=== PATIENT | male | born 1945 | race Caucasian/White ===

== ENCOUNTER → 2016-11-03 | Outpatient (CLI) | payer MEDICARE ==
[~2016-11-03] VITALS: Ht 172.7 cm; Wt 75.7 kg
[~2016-11-03] MED LIST: ATOR40TA PO; LIDOCAINE 2% INJ 100 MG/5 ML SDV (FOR ANES.) As Ordered ONE; NEXI40CA PO; NS 1,000 ML IV SCH; PROPOFOL 200 MG/20 ML VIAL As Ordered ONE; ZYLO300T4 PO
--- NOTE | 2016-11-03 11:46 | ROOR ---
Patient Name: Micheal Morelos Procedure Date: 11/03/2016 11:29 AM Date of : 1945 Age: 71 Room: M OP Gender: Male Note Status: Finalized Procedure: Upper GI endoscopy Indications: Iron deficiency anemia Providers: Vinny Tilley MD Referring MD: Gena Ortiz MD Requesting Provider: Medicines: Monitored Anesthesia Care Complications: No immediate complications. Procedure: Pre-Anesthesia Assessment: - The heart rate, respiratory rate, oxygen saturations, blood pressure, adequacy of pulmonary ventilation, and response to care were monitored throughout the procedure. The Endoscope was introduced through the mouth, and advanced to the second part of duodenum. The upper GI endoscopy was accomplished without difficulty. The patient tolerated the procedure well. Findings: The Z-line was regular and was found 40 cm from the incisors. A small hiatus hernia was present. Diffuse minimal inflammation characterized by erosions and erythema was found in the gastric body. The exam of the duodenum was otherwise normal. Impression: - Z-line regular, 40 cm from the incisors. - Small hiatus hernia. - Acute gastritis. - No specimens collected. - The examination was otherwise normal. Recommendation: - Patient has a contact number available for emergencies. The signs and symptoms of potential delayed complications were discussed with the patient. Return to normal activities tomorrow. Written discharge instructions were provided to the patient. - Discharge patient to home. - High fiber diet. - Continue present medications. - Return to referring physician. - The findings and recommendations were discussed with the patient's family. Vinny Tilley MD Vinny Tilley MD 11/03/2016 11:46:10 AM This report has been signed electronically. Number of Addenda: 0 Note Initiated On: 11/03/2016 11:29 AM Estimated Blood Loss: Estimated blood loss: none.
--- NOTE | 2016-11-03 12:04 | ROOR ---
Patient Name: Micheal Morelos Procedure Date: 11/03/2016 11:30 AM Date of : 1945 Age: 71 Room: [facility] Gender: Male Note Status: Finalized Procedure: Colonoscopy to Cecum Indications: Iron deficiency anemia Providers: Vinny Tilley MD Referring MD: Gena Ortiz MD Requesting Provider: Medicines: Monitored Anesthesia Care Complications: No immediate complications. Procedure: Pre-Anesthesia Assessment: - The heart rate, respiratory rate, oxygen saturations, blood pressure, adequacy of pulmonary ventilation, and response to care were monitored throughout the procedure. The Colonoscope was introduced through the anus and advanced to the cecum, identified by appendiceal orifice and ileocecal valve. The colonoscopy was performed without difficulty. The patient tolerated the procedure well. The quality of the bowel preparation was excellent. Findings: The perianal and digital rectal examinations were normal. Non-bleeding internal hemorrhoids were found during retroflexion. The hemorrhoids were small and Grade I (internal hemorrhoids that do not prolapse). Multiple small and large-mouthed diverticula were found in the entire colon. The exam was otherwise without abnormality on direct and retroflexion views. Impression: - Non-bleeding internal hemorrhoids. - Diverticulosis in the entire examined colon. - The examination was otherwise normal on direct and retroflexion views. - No specimens collected. - The exam was otherwise normal to the cecum. Recommendation: - Patient has a contact number available for emergencies. The signs and symptoms of potential delayed complications were discussed with the patient. Return to normal activities tomorrow. Written discharge instructions were provided to the patient. - High fiber diet. - Discharge patient to home. - Continue present medications. - Repeat colonoscopy in 10 years for screening purposes. - Return to referring physician. - The findings and recommendations were discussed with the patient's family. Vinny Tilley MD Vinny Tilley MD 11/03/2016 12:03:34 PM This report has been signed electronically. Number of Addenda: 0 Note Initiated On: 11/03/2016 11:30 AM Estimated Blood Loss: Estimated blood loss: none.
[2016-11-03 12:25] VITALS: BP 126/85
== END ==
LOC: M OPP 10:15 → M SDC 10:39
PROVIDERS: ATTEND Internal Medicine Gastroenterology
DX: D50.9 Iron deficiency anemia, unspecified (principal); K57.30 Diverticulosis of large intestine without perforation or abscess without bleeding; K44.9 Diaphragmatic hernia without obstruction or gangrene; K64.0 First degree hemorrhoids; R13.10 Dysphagia, unspecified; K29.00 Acute gastritis without bleeding; E78.5 Hyperlipidemia, unspecified; F32.9 Major depressive disorder, single episode, unspecified; M10.9 Gout, unspecified; R12 Heartburn; Z86.010 Personal history of colon polyps; Z88.6 Allergy status to analgesic agent; Z80.52 Family history of malignant neoplasm of bladder; Z87.891 Personal history of nicotine dependence; Z79.899 Other long term (current) drug therapy

== ENCOUNTER → 2017-03-12 | Outpatient (CLI) | payer MEDICARE ==
[~2017-03-12] MED LIST changes: -LIDOCAINE 2% INJ 100 MG/5 ML SDV (FOR ANES.) As Ordered ONE; -NS 1,000 ML IV SCH; -PROPOFOL 200 MG/20 ML VIAL As Ordered ONE
--- NOTE | 2017-03-12 13:20 | REP ---
Clinical: Lung screening. History of smoking. Comparison: None Technique: Axial low-dose noncontrast images from the thoracic inlet to the upper abdomen using lung screening technique. Findings: The lung blackwell are well-aerated. Mild emphysematous changes are appreciated along with mild central bronchiectasis and minimal scattered basilar scarring. No consolidation, significant nodule or mass lesion is appreciated. No pleural effusion/reaction or pneumothorax. Mediastinum demonstrates mild atherosclerotic changes of the coronary arteries without cardiomegaly. Impression: Lung-RADS category I. No nodule or suspicious abnormality. Secondary findings include mild emphysematous changes. Management recommendations include annual low-dose CT screening. Signed by Ken Gallegos MD 03/12/2017 01:11 P
== END ==
LOC: M RAD 12:53
PROVIDERS: ATTEND Family Medicine
DX: Z87.891 Personal history of nicotine dependence (principal)

== ENCOUNTER → 2018-03-16 | Outpatient (CLI) | payer MEDICARE | LOC: M RAD 10:13 | DX: Z12.2 Encounter for screening for malignant neoplasm of respiratory organs (principal); Z87.891 Personal history of nicotine dependence | CPT/HCPCS: G0297 ==

== ENCOUNTER → 2019-02-15 | Outpatient (REF) | payer MEDICARE ==
[~2019-02-15] MED LIST changes: -ATOR40TA PO; +ATOR40TA75 PO; -ZYLO300T4 PO; +ZYLO300T6 PO
[2019-02-15 15:00] LABS: HEMATOCRIT 37.8 % (42.0-52.0); HEMOGLOBIN 12.9 g/dl (13.5-17.5); MEAN CORPUSCULAR HEMOGLOBIN 32.3 pg (27.0-33.0); MEAN CORPUSCULAR HGB CONC 34.1 g/dl (32.0-36.5); MEAN CORPUSCULAR VOLUME 94.5 fl (80.0-96.0); PLATELET COUNT, AUTOMATED 249 10^3/uL (150-450)
== END ==
LOC: M SFHCPLAZ 13:24
PROVIDERS: ATTEND Family Medicine
DX: D50.9 Iron deficiency anemia, unspecified (principal); M10.9 Gout, unspecified

== ENCOUNTER → 2019-02-16 | Outpatient (REF) | payer MEDICARE | LOC: M SFHCPLAZ 13:26 | PROVIDERS: ATTEND Family Medicine | DX: D50.9 Iron deficiency anemia, unspecified (principal) ==

== ENCOUNTER → 2019-02-17 | Outpatient (REF) | payer MEDICARE ==
[2019-02-17 18:29] LABS: HEMATOCRIT 39.4 % (42.0-52.0); HEMOGLOBIN 13.2 g/dl (13.5-17.5); MEAN CORPUSCULAR HEMOGLOBIN 32.2 pg (27.0-33.0); MEAN CORPUSCULAR HGB CONC 33.5 g/dl (32.0-36.5); MEAN CORPUSCULAR VOLUME 96.1 fl (80.0-96.0); PLATELET COUNT, AUTOMATED 243 10^3/uL (150-450); WHITE BLOOD COUNT 13.3 10^3/uL (4.0-10.0)
== END ==
LOC: M LABDRAWP 14:21
PROVIDERS: ATTEND Family Medicine
DX: D64.9 Anemia, unspecified (principal)

== ENCOUNTER → 2019-02-25 | Outpatient (CLI) | payer MEDICARE ==
--- NOTE | 2019-02-25 16:36 | REP ---
HISTORY: Tobacco abuse. COMPARISON: 03/16/2018 and 03/12/2017. As per the low dose screening CT protocol only lung window images were sent to the read station for interpretation. The lung blackwell are again seen to be hyperexpanded, status quo. Scattered asymmetric densities are again seen throughout the lung blackwell with basilar predominance, status quo. There is mild thickening of the periphery of the left major fissure which is stable. There is evidence of cylindrical traction bronchiectasis, status quo. No new abnormal nodules, masses or opacities have developed. IMPRESSION: Stable chronic lung field changes and emphysematous changes with fibrosis and bronchiectasis as described above. There is no new nodule. Lung-RADS category 2. Yearly followup is recommended. Electronically Signed by Nathaniel Delgado DO 02/25/2019 04:41 P
== END ==
LOC: M RAD 10:40
PROVIDERS: ATTEND Family Medicine
DX: F17.211 Nicotine dependence, cigarettes, in remission (principal); R91.8 Other nonspecific abnormal finding of lung field

== ENCOUNTER → 2019-06-09 | Outpatient (CLI) | payer MEDICARE ==
[~2019-06-09] MED LIST changes: +CART1TAB2 PO; +IBUP200C25 PO; +SAW1CAPS2 PO
--- NOTE | 2019-06-09 10:10 | REP ---
REASON FOR EXAM: Splenomegaly. Multiple ultrasonographic images of the spleen show the spleen to measure 9.4 x 3.7 x 8.6 cm rendering a splenic volumetric index of 299 mL which is within normal limits. When evaluating the left upper quadrant images of the left kidney were obtained showing both kidneys to measure 11.9 x 4.9 x 5.4 cm. There are two anechoic structures seen in the left kidney 1 measuring a centimeter and the other measuring 1.5 cm, both consistent with renal cysts. The larger of the two cyst has potential mural nodule and the smaller of the two cysts is thinly singularly septated. Also seen in the left kidney a tiny echogenic focus was seen in the cortex of the upper pole not casting an acoustic shadow. IMPRESSION:1. No ultrasonographic evidence of splenomegaly. Volumetric index is within normal limits with measurements as described above. 2. Findings involving the left kidney as described above. Pre and post contrast enhanced renal CT is recommended due to the complexity or potential complexity of the aforementioned cysts. The echogenic focus seen in the left kidney potentially represents a non-shadowing calculus or vascular structure. Electronically Signed by Nathaniel Delgado DO 06/09/2019 03:28 P
== END ==
LOC: M RAD 07:26
PROVIDERS: ATTEND Internal Medicine
DX: R16.1 Splenomegaly, not elsewhere classified (principal)

== ENCOUNTER → 2019-10-12 | Outpatient (CLI) | payer MEDICARE ==
--- NOTE | 2019-10-12 11:21 | REP ---
Abdominal aortic sonography: History: Abdominal aortic aneurysm without rupture. Comparison sonography October 02, 2016 showed a 3.1 cm distal abdominal aortic aneurysm. Sonographic findings: The abdominal aorta measures 2.5 x 2.0 cm in AP by transverse dimension respectively at the diaphragmatic hiatus. At the level of the main renal arteries, these dimensions are 2.1 x 1.6 cm. At mid aortic level there is a infrarenal aneurysm measuring 3.1 x 2.4 cm. 7 cm of aortic length is dilated. The distal aorta tapers to a normal caliber, 2.0 x 1.5 cm. The right and left common iliac arteries are normal in caliber measuring 1.1 and 0.9 cm in AP dimension respectively. Impression: Stable 3.1 x 2.4 cm infrarenal abdominal aortic aneurysm. Electronically Signed by Johnie Holloway MD 10/12/2019 05:50 P
== END ==
LOC: M RAD 09:28
PROVIDERS: ATTEND Family Medicine
DX: I71.4 Abdominal aortic aneurysm, without rupture (principal)

== ENCOUNTER → 2020-02-23 | Outpatient (REF) | payer MEDICARE ==
[2020-02-23 12:27] LABS: ALBUMIN 3.7 GM/DL (3.2-5.2); ALT/SGPT 26 U/L (12-78); BILIRUBIN,TOTAL 0.5 MG/DL (0.2-1.0); BLOOD UREA NITROGEN 9 MG/DL (7-18); CALCIUM LEVEL 9.1 MG/DL (8.8-10.2); CARBON DIOXIDE LEVEL 28 MEQ/L (21-32); CHLORIDE LEVEL 106 MEQ/L (98-107); CHOLESTEROL LEVEL 183 MG/DL (<200); CHOLESTEROL RISK RATIO 1.605 (<5); CREATININE FOR GFR 0.86 MG/DL (0.70-1.30); GLOMERULAR FILTRATION RATE > 60.0 (>42); GLUCOSE, FASTING 81 MG/DL (70-100); HDL CHOLESTEROL 114 MG/DL (>40); LDL CHOLESTEROL 15 MG/DL (<100); NON-HDL-C 69 MG/DL; POTASSIUM SERUM 4.4 MEQ/L (3.5-5.1); SODIUM LEVEL 141 MEQ/L (136-145); TOTAL PROTEIN 7.1 GM/DL (6.4-8.2); TRIGLYCERIDES LEVEL 268 MG/DL (<150); URIC ACID 3.5 MG/DL (3.5-7.2)
== END ==
LOC: M PLALAB 10:25
PROVIDERS: ATTEND Family Medicine
DX: E78.1 Pure hyperglyceridemia (principal); M10.9 Gout, unspecified

== ENCOUNTER → 2020-03-30 | Outpatient (CLI) | payer MEDICARE | LOC: M LABSMTC 09:36 | PROVIDERS: ATTEND Anesthesiology | DX: Z01.818 Encounter for other preprocedural examination (principal); Z11.59 Encounter for screening for other viral diseases | CPT/HCPCS: C9803; U0003 ==

== ENCOUNTER 2020-04-02 06:39 | Day surgery (SDC) | payer MEDICARE ==
[~2020-04-02] VITALS: Ht 172.7 cm; Wt 66.7 kg
[~2020-04-02 06:39] MED LIST changes: +NS 1,000 ML IV ONE
[2020-04-02] MEDS ORDERED: LIDOCAINE 2% 100MG/5ML SDV (FOR ANES.) As Ordered ONE (07:08)
[2020-04-02] MEDS ORDERED: propofoL 200 MG/20 ML VIAL As Ordered ONE ×2 (07:08→08:04)
[2020-04-02] MEDS ORDERED: fentaNYL 100 MCG/2 ML INJECTION (J3010) As Ordered ONE (07:47)
--- NOTE | 2020-04-02 07:56 | ROOR ---
Patient Name: Micheal Morelos Procedure Date: 04/02/2020 7:39 AM Date of : 1945 Age: 74 Room: [facility] Gender: Male Note Status: Finalized Procedure: Upper Endoscopy + Biopsies + Dilatation Indications: Heartburn, Exclusion of Patrick's esophagus Providers: Vinny Tilley MD Referring MD: Gena Ortiz MD Requesting Provider: Medicines: Monitored Anesthesia Care Complications: No immediate complications. Procedure: Pre-Anesthesia Assessment: - The heart rate, respiratory rate, oxygen saturations, blood pressure, adequacy of pulmonary ventilation, and response to care were monitored throughout the procedure. The Colonoscope was introduced through the anus and advanced to the second part of duodenum. The upper GI endoscopy was accomplished without difficulty. The patient tolerated the procedure well. Findings: The Z-line was regular and was found 35 cm from the incisors. Multiple biopsies were obtained with cold forceps for evaluation to rule out Patrick's Esophagus randomly at the gastroesophageal junction. A moderate Schatzki ring was found at the gastroesophageal junction. A TTS dilator was passed through the scope. Dilation with an 18-19-20 mm balloon dilator was performed to 20 mm. The dilation site was examined and showed moderate mucosal disruption. No other significant abnormalities were identified in a careful examination of the stomach. The exam of the duodenum was otherwise normal. Impression: - Z-line regular, 35 cm from the incisors. - Moderate Schatzki ring. Dilated. - Multiple biopsies were obtained at the gastroesophageal junction. - The examination was otherwise normal. Recommendation: - Patient has a contact number available for emergencies. The signs and symptoms of potential delayed complications were discussed with the patient. Return to normal activities tomorrow. Written discharge instructions were provided to the patient. - High fiber diet. - Discharge patient to home. - Follow an antireflux regimen. - Continue present medications. - Await pathology results. - Telephone GI clinic for pathology results in 1 week. - Return to referring physician. - The findings and recommendations were discussed with the patient's family. Vinny Tilley MD Vinny Tilley MD 04/02/2020 7:55:40 AM Electronically signed by Vinny Tilley MD Number of Addenda: 0 Note Initiated On: 04/02/2020 7:39 AM Estimated Blood Loss: Estimated blood loss: none.
[2020-04-02] MEDS ORDERED: PHENYLephrine HCL 500 MCG/5 ML (100MCG/ML) SYRINGE (J2370) As Ordered ONE (08:06)
--- NOTE | 2020-04-02 08:19 | ROOR ---
Patient Name: Micheal Morelos Procedure Date: 04/02/2020 7:36 AM Date of : 1945 Age: 74 Room: [facility] Gender: Male Note Status: Finalized Procedure: Total Colonoscopy to Cecum + Biopsy Polypectomy Indications: High risk colon cancer surveillance: Personal history of colonic polyps, Last colonoscopy: 2016 Providers: Vinny Tilley MD Referring MD: Gena Ortiz MD Requesting Provider: Medicines: Monitored Anesthesia Care Complications: No immediate complications. Procedure: Pre-Anesthesia Assessment: - The heart rate, respiratory rate, oxygen saturations, blood pressure, adequacy of pulmonary ventilation, and response to care were monitored throughout the procedure. The Endoscope was introduced through the mouth, and advanced to the cecum, identified by appendiceal orifice and ileocecal valve. The colonoscopy was performed without difficulty. The patient tolerated the procedure well. The quality of the bowel preparation was excellent. Findings: The perianal and digital rectal examinations were normal. Non-bleeding internal hemorrhoids were found during retroflexion. The hemorrhoids were small and Grade I (internal hemorrhoids that do not prolapse). Multiple small and large-mouthed diverticula were found in the recto-sigmoid colon, sigmoid colon and descending colon. A small polyp was found in the splenic flexure. The polyp was sessile. The polyp was removed with a cold biopsy forceps. Resection and retrieval were complete. The exam was otherwise without abnormality on direct and retroflexion views. Impression: - Non-bleeding internal hemorrhoids. - Diverticulosis in the recto-sigmoid colon, in the sigmoid colon and in the descending colon. - One small polyp at the splenic flexure, removed with a cold biopsy forceps. Resected and retrieved. - The examination was otherwise normal on direct and retroflexion views. - The exam was otherwise normal to the cecum. Recommendation: - Patient has a contact number available for emergencies. The signs and symptoms of potential delayed complications were discussed with the patient. Return to normal activities tomorrow. Written discharge instructions were provided to the patient. - High fiber diet. - Discharge patient to home. - Continue present medications. - Await pathology results. - Telephone GI clinic for pathology results in 1 week. - Repeat colonoscopy for symptoms only. - Return to referring physician. - The findings and recommendations were discussed with the patient's family. Vinny Tilley MD Vinny Tilley MD 04/02/2020 8:18:29 AM Electronically signed by Vinny Tilley MD Number of Addenda: 0 Note Initiated On: 04/02/2020 7:36 AM Estimated Blood Loss: Estimated blood loss: none.
[2020-04-02 08:40] VITALS: BP 128/68
== END 2020-04-02 08:54 | disposition home or self-care (01) ==
LOC: M OPP 06:39
PROVIDERS: ATTEND Internal Medicine Gastroenterology
DX: Z12.11 Encounter for screening for malignant neoplasm of colon (principal); Z86.010 Personal history of colon polyps; D12.3 Benign neoplasm of transverse colon; K64.0 First degree hemorrhoids; K57.30 Diverticulosis of large intestine without perforation or abscess without bleeding; K22.2 Esophageal obstruction; R12 Heartburn; Z79.899 Other long term (current) drug therapy; Z88.6 Allergy status to analgesic agent; Z87.891 Personal history of nicotine dependence
CPT/HCPCS: 43239; 43249; 45380; 88305; J2370; J3010

== ENCOUNTER 2020-04-30 13:42 | Inpatient (IN) | payer MEDICARE ==
[~2020-04-30] VITALS: Ht 175.3 cm; Wt 66.8 kg
[~2020-04-30 13:42] MED LIST changes: -PERC5TAB12 PO; -XARE10TA PO
[2020-04-30] MEDS ORDERED: NS 500 ML IV ONE (14:00)
[2020-04-30 14:12] LABS: BASO # 0.1 10^3/uL (0.0-0.2); BASO % 0.5 % (0.0-1.0); EOS % 0.1 % (0.0-3.0); HEMATOCRIT 36.8 % (42.0-52.0); HEMOGLOBIN 12.6 g/dl (13.5-17.5); LYMPH # 1.1 10^3/uL (1.5-5.0); LYMPH % 9.7 % (24.0-44.0); MEAN CORPUSCULAR HEMOGLOBIN 32.1 pg (27.0-33.0); MEAN CORPUSCULAR HGB CONC 34.2 g/dl (32.0-36.5); MEAN CORPUSCULAR VOLUME 93.6 fl (80.0-96.0); MONO # 0.7 10^3/uL (0.0-0.8); MONO % 6.2 % (0.0-5.0); NEUTROPHILS # 9.1 10^3/uL (1.5-8.5); NEUTROPHILS % 83.1 % (36.0-66.0); PLATELET COUNT, AUTOMATED 254 10^3/uL (150-450); RED BLOOD COUNT 3.93 10^6/uL (4.30-6.10)
[2020-04-30 15:26] LABS: INR 1.05; PROTHROMBIN TIME 13.4 SECONDS (11.8-14.0)
[2020-04-30 15:57] LABS: ALBUMIN 3.5 GM/DL (3.2-5.2); BILIRUBIN,DIRECT 0.2 MG/DL (0.0-0.2); BILIRUBIN,TOTAL 0.6 MG/DL (0.2-1.0); THYROID STIMULATING HORMONE 1.1 uIU/ML (0.358-3.740); TOTAL PROTEIN 6.9 GM/DL (6.4-8.2)
[2020-04-30] MEDS ORDERED: NS 1,000 ML IV SCH (16:02)
--- NOTE | 2020-04-30 16:05 | HPEPDOC ---
[facility] Medical History & Physical Date of Admission Apr 30, 2020 Date of Service: Apr 30, 2020 Primary Care Physician: A Attending Physician: Kendra Galvez MD History and Physical CHIEF COMPLAINT: left hip pain HISTORY OF PRESENT ILLNESS: Patient is a 75 y/o M with PMH of GERD, gout, HLD, tobacco use who presented to [facility] ER after falling on his left hip earlier today. Patient states he was walking his dog early this AM, when his dog stopped abruptly during a run. He continued to propel forward and his left hip hit the concrete. The rest of his body landed on the lawn. The patient felt immediate severe pain, 10/10 pain, sharp in character, constant. His helped him get to his feet. He was helped to his entryway to his house, his gave him crutches to use. He then had some light breakfast but the pain persisted. He then went to the Urgent Care to get XR. There was a suspicion for femur fracture and he was then sent to the ER for further evaluation. In ER, left hip fracture was confirmed. Orthopedic surgery was consulted and confirmed nondisplaced left intertrochanteric fracture. VS showed some hypertension, tachycardia 2/2 to pain. He was admitted under medicine service with orthopedic consult for left hip fracture requiring further surgical intervention. PAST MEDICAL HISTORY: 1. Gout 2. Hiatal hernia 3. GERD 4. HLD 5. hx of tobacco use PAST SURGICAL HISTORY: 1. Achilles tendon repair on right 1978 2. Colonoscopy 03/2020 SOCIAL HISTORY: Smoker for 35 years, 1 PPD. Quit 12 years ago. Alcohol use daily, 5-6 beers . Denies illicit drug use. PCP- Dr. Ortiz. Lives with his in the local community. HCP- his . Full Code. FAMILY HISTORY: Father: Colon cancer. at 73 y/o Mother: Cancer- type unknown. at 73 y/o ALLERGIES: Please see below. HOME MEDICATIONS: Please see below. PHYSICAL EXAMINATION: CONSTITUTIONAL: No acute distress, resting comfortably, AAO x 3 EYES: PERRLA, EOM intact HENT, MOUTH: Normocephalic, atraumatic, moist mucous membranes, NECK: SUPPLE, no JVD, no lymphadenopathy, no carotid bruit CV: Regular rate and rhythm, S1S2 normal, no murmurs/rubs/gallops RESPIRATORY: Clear to auscultation bilaterally, no rales/rhonchi/wheezes GI: BS positive in 4 quadrants, soft, nontender, nondistended, no rebound or guarding, no organomegaly : Deferred MUSCULOSKELETAL: ROM not tested left hip, pain with palpation of left hip. No cyanosis, clubbing, swelling, joint deformity, extremity edema INTEGUMENTARY: Mild bruising, superficial abrasions of left hip. Intact, no rashes, no lesions, no erythema NEUROLOGIC: Cranial Nerves II-XII are intact, no focal deficits PSYCHIATRIC: Mood and affect are normal LABORATORY DATA: Please see below IMAGING: Left hip XR: nondisplaced left intertrochanteric fracture . ASSESSMENT: 75 y/o M with PMH of gout, GERD, hiatal hernia, HLD admitted for left nondisplaced intertrochanteric fracture requiring surgery. PLAN: 1. Nondisplaced left intertrochanteric fracture, acute . -Patient is low risk for intermediate risk surgery -RCRI risk: Class I Risk -NPO -Pain control with morphine based on regimen scale. -Resume anticoagulation MIKE per surgery's recommendation -PT/OT when ok by surgery -Orthopedic surgery consulted, case discussed with Dr. Bañuelos 2. Tachycardia likely 2/2 to uncontrolled pain -Morphine PRN -Monitor on tele 3. HTN likely 2/2 to uncontrolled pain. No hx -Morphine PRN -Monitor on tele. 4. Gout -C/w medications when taking PO 5. HLD. -C/w statin when taking PO 6. GERD -Hx of hiatal hernia -Holding PO PPI -PPI IV 7. DVT Px. -TEDs, SCDs -Resume anticoagulation when ok with surgery post-op DISPOSITION: Admitted under medicine service with orthopedic surgery consulted. Vital Signs Vital Signs Date Time Temp Pulse Resp B/P (MAP) Pulse Ox O2 Delivery O2 Flow Rate FiO2 04/30/20 15:50 91 18 98 Room Air 04/30/20 15:48 128/79 (95) 04/30/20 13:53 98.8 Laboratory Data Labs 24H Laboratory Tests 2 04/30/20 14:00: Immature Granulocyte % (Auto) 0.4, Neutrophils (%) (Auto) 83.1H, Lymphocytes (%) (Auto) 9.7L, Monocytes (%) (Auto) 6.2H, Eosinophils (%) (Auto) 0.1, Basophils (%) (Auto) 0.5, Neutrophils # (Auto) 9.1H, Lymphocytes # (Auto) 1.1L, Monocytes # (Auto) 0.7, Eosinophils # (Auto) 0.0, Basophils # (Auto) 0.1, Nucleated Red Blood Cells % (auto) 0.0 04/30/20 14:03: POC Glucose (Misc Panel) 92, POC Sodium (Misc Panel) 136, POC Potassium (Misc Panel) 4.8, POC Chloride (Misc Panel) 102, POC Total CO2 (Misc Panel) 24.0, POC Blood Urea Nitrogen (Misc Panel 9, POC Ionized Calcium (Misc Panel) 4.5, POC Creatinine (Misc Panel) 0.9, POC Hematocrit (Misc Panel) 38.0 04/30/20 14:06: POC Troponin I (Misc) 0.00 04/30/20 14:53: Prothrombin Time 13.4, Prothromb Time International Ratio 1.05, Activated Partia l Thromboplast Time 22.0L, Total Bilirubin 0.6, Direct Bilirubin 0.2, Aspartate Amino Transf (AST/SGOT) 41H, Alanine Aminotransferase (ALT/SGPT) 23, Alkaline Phosphatase 110, KJ-Ogt-V-Type Natriuretic Peptide 148H, Total Protein 6.9, Albumin 3.5, Albumin/Globulin Ratio 1.0, Lipase 141, Thyroid Stimulating Hormone (TSH) 1.100 CBC/BMP Laboratory Tests 04/30/20 14:00 Microbiology Microbiology 04/30/20 Respiratory Virus Panel (PCR) ([facility]), Received Pending Home Medications Scheduled Allopurinol (Zyloprim) 300 Mg Tab, 300 MG PO DAILY Atorvastatin Calcium (Atorvastatin Calcium) 40 Mg Tablet, 40 MG PO DAILY Cartilage/Collagen/Bor/Hyalur (Move Free Ultra Tablet) 1 Each Tablet, 2 EACH PO DAILY Esomeprazole Magnesium (Nexium) 40 Mg Cap, 40 MG PO DAILY Ibuprofen (Ibuprofen) 200 Mg Capsule, 800 MG PO DAILY Saw [place] Fruit/Zinc Picoli (Saw [place] 450 mg Capsule) 1 Each Capsule, 1 EACH PO DAILY Allergies Coded Allergies: aspirin (Verified Allergy, Intermediate, swelling and hives, 03/26/20) A-FIB/CHADSVASC A-FIB History Current/History of A-Fib/PAF?: No Current PO Anticoag Therapy: No Age/Risk Factor Scoring CHADSVASC: CHADSVASC Response (Comments) Value Age Risk Factor Age 65-74 years old 1 Gender Risk Factor Male 0 Hx of CHF No 0 Hx of HTN No 0 Hx of Stroke/TIA/or VTE No 0 Hx of Diabetes No 0 Hx of Vascular Disease No 0 Total 1 Treatment Treatment ordered: NONE Other anticoagulant ordered: no due to having surgery Kendra Galvez MD Apr 30, 2020 16:05
[2020-04-30] MEDS ORDERED: MORPHINE 2 MG/ML 1ML VIAL (J2270) IV PRN ×3 (16:15→21:00)
[2020-04-30] MEDS ORDERED: ONDANSETRON 4MG/2ML VIAL IV PRN ×3 (16:15→21:00)
--- NOTE | 2020-04-30 16:47 | REP ---
CHEST: REASON: Chest pain. COMPARISON: 11/01/2002 The technique utilized in obtaining the radiograph has magnified the cardiac silhouette and accentuated the interstitial markings. FINDINGS: The superior mediastinal structures are midline. The cardiac silhouette is unremarkable in size, shape, and position. The diaphragmatic surfaces of the lungs are regular, and the costophrenic angles are clear. The pulmonary blackwell are clear. The imaged osseous structures are intact. IMPRESSION: There is no acute cardiopulmonary disease. Electronically Signed by Nathaniel Delgado DO 04/30/2020 04:51 P
[2020-04-30] MEDS ORDERED: ceFAZolin 1GM VIAL (J0690 PER 500MG) As Ordered ONE (17:55)
[2020-04-30] MEDS ORDERED: KETAMINE HCL 200 MG/20 ML VIAL As Ordered ONE (18:20)
[2020-04-30] MEDS ORDERED: MIDAZOLAM INJ 2MG/2ML VIAL (J2250 PER 1MG) As Ordered ONE ×2 (18:20→19:22)
[2020-04-30] MEDS ORDERED: ceFAZolin 2 GM/D5W 50 ML IV BAG (J0690 PER 500MG) As Ordered ONE (19:15)
[2020-04-30] MEDS ORDERED: ONDANSETRON 4MG/2ML VIAL As Ordered ONE (19:59)
[2020-04-30] MEDS ORDERED: KETOROLAC 60MG 2ML VIAL As Ordered ONE (19:59)
[2020-04-30] MEDS ORDERED: PHENYLephrine HCL 500 MCG/5 ML (100MCG/ML) SYRINGE (J2370) As Ordered ONE (19:59)
[2020-04-30] MEDS ORDERED: KETOROLAC 30 MG/ML 1ML VIAL IV PRN (20:01)
[2020-04-30] MEDS ORDERED: ACETAMINOPHEN TAB 650MG DOSE (2X325MG) PO PRN (21:00)
[2020-04-30] MEDS ORDERED: LR 1,000 ML IV SCH ×2 (21:00)
[2020-04-30] MEDS ORDERED: METOCLOPRAMIDE INJ 10MG/2ML VIAL (J2765 PER 1) IV PRN (21:00)
[2020-04-30] MEDS ORDERED: fentaNYL 100 MCG/2 ML INJECTION (J3010) IV PRN (21:00)
[2020-04-30] MEDS ORDERED: PERCOCET 5MG/325MG TAB PO PRN (21:00)
[2020-04-30 21:15] VITALS: BP 139/77
[2020-04-30 21:45] VITALS: BP 115/72
--- NOTE | 2020-04-30 22:06 | CR ---
DATE OF CONSULTATION: 04/30/2020 INDICATION: Left hip fracture. HISTORY OF PRESENT ILLNESS: Micheal is a 75-year-old gentleman, community ambulator, who tripped walking his dog earlier today. He had pain in the left hip, went to Urgent Care where x-rays revealed a nondisplaced greater trochanter fracture. He was transferred over to the emergency room (ER) at [facility] and admitted to the hospitalist service. He was medically optimized by the hospitalists. The patient was reporting moderate pain at the greater trochanter with no numbness or tingling. Pain improved with rest and morphine, worse with any movement or transfers. For the patient's full past medical history, past surgical history, medications, allergies and social history, please see the admitting history and physical, which I reviewed. REVIEW OF SYSTEMS: The patient denied neurologic, cardiac, pulmonary or abdominal symptoms. Musculoskeletal: Positive for pain and swelling. The patient does not smoke. 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 He lives in town with his . He is fairly active for his age. On exam, well-appearing gentleman, no distress. Alert and oriented times three. Neurologic: Appropriate mood and affect. Cardiovascular: 2+ posterior tibial (PT) pulse. Pulmonary: Nonlabored breathing. Abdomen: Nonobese. Skin is intact without open lesions. Musculoskeletal: The patient's leg was externally rotated, but not shortened. He had tenderness at the greater trochanter. Pain with any attempt a log roll. He could wiggle his toes. Sensation intact. X-rays of the left hip and left femur reveal a nondisplaced fracture at the greater trochanter, essentially a basicervical fracture. ASSESSMENT/PLAN: Micheal is a 75-year-old gentleman with a nondisplaced left intertrochanteric proximal femur fracture after mechanical fall. He was admitted to the hospitalist service and medically optimized. Plan to proceed with surgery later in the evening.
[2020-04-30 22:15] VITALS: BP 115/70
[2020-04-30 23:00] VITALS: BP 121/74
[2020-05-01] VITALS (8 sets, daily range): BP systolic 107–123; BP diastolic 61–77
[2020-05-01] MEDS: PERCOCET 5MG/325MG TAB PO PRN ×4 (01:16→23:33)
[2020-05-01] MEDS: ceFAZolin SOD 2 GM in IV 1 EA IV SCH ×2 (01:17→10:25)
[2020-05-01 06:32] LABS: HEMATOCRIT 30.8 % (42.0-52.0); MEAN CORPUSCULAR HEMOGLOBIN 32.3 pg (27.0-33.0); MEAN CORPUSCULAR HGB CONC 33.8 g/dl (32.0-36.5); MEAN CORPUSCULAR VOLUME 95.7 fl (80.0-96.0); PLATELET COUNT, AUTOMATED 201 10^3/uL (150-450); RED BLOOD COUNT 3.22 10^6/uL (4.30-6.10); WHITE BLOOD COUNT 7.7 10^3/uL (4.0-10.0)
[2020-05-01 06:36] LABS: HEMOGLOBIN 10.4 g/dl (13.5-17.5)
[2020-05-01 07:00] LABS: ALBUMIN 2.8 GM/DL (3.2-5.2); ALT/SGPT 17 U/L (12-78); BILIRUBIN,TOTAL 0.9 MG/DL (0.2-1.0); BLOOD UREA NITROGEN 8 MG/DL (7-18); CALCIUM LEVEL 8.3 MG/DL (8.8-10.2); CARBON DIOXIDE LEVEL 26 MEQ/L (21-32); CHLORIDE LEVEL 107 MEQ/L (98-107); CREATININE FOR GFR 0.99 MG/DL (0.70-1.30); GLOMERULAR FILTRATION RATE > 60.0 (>42); GLUCOSE, FASTING 96 MG/DL (70-100); POTASSIUM SERUM 3.4 MEQ/L (3.5-5.1); SODIUM LEVEL 140 MEQ/L (136-145); TOTAL PROTEIN 6.1 GM/DL (6.4-8.2)
[2020-05-01] MEDS ORDERED: PERCOCET 5MG/325MG TAB PO PRN (08:00)
--- NOTE | 2020-05-01 08:02 | ECGEPIP ---
[facility] - ED Test Date: 2020-04-30 Pat Name: ASIF PINTO Department: Room: - Gender: Male Surgical Clinical Reviewer: SUYAPA : 1945 Requested By: SUSU Bruno Order Number: [id number] Reading MD: Richard Ibrahim Measurements Intervals Clint Rate: 85 P: 25 ID: [id number] QRS: 46 QRSD: 144 T: 224 QT: 416 QTc: 496 Interpretive Statements SINUS RHYTHM LEFT BUNDLE BRANCH BLOCK NO PRIORS FOR COMPARISON Electronically Signed on 05-01-2020 8:02:48 EDT by Richard Ibrahim
[2020-05-01] MEDS: MOM 30ML SUSPENSION UDC PO SCH (08:30)
[2020-05-01] MEDS: MIRALAX *UNIT DOSE* 17GM PACKET PO SCH (08:30)
[2020-05-01] MEDS: PANTOPRAZOLE 40MG VIAL (C9113 PER 1) IV SCH (08:30)
--- NOTE | 2020-05-01 08:46 | REP ---
REASON: Known hip fracture. AP and cross-table lateral views of the left femur show a previously described proximal femoral fracture. There are no additional fractures. There is no hip joint dislocation. Electronically Signed by Nathaniel Delgado DO 05/01/2020 05:18 P
--- NOTE | 2020-05-01 11:04 | REP ---
REASON: Status post ORIF. Previously described femoral fracture has been internally fixed with intramedullary windy placement. The alignment is near anatomical. There are no additional fractures. Electronically Signed by Nathaniel Delgado DO 05/01/2020 05:22 P
--- NOTE | 2020-05-01 12:27 | REP ---
C-ARM VIEWS LEFT HIP: Multiple C-arm views of the left hip performed during placement of metallic internal fixation in the left femur. Osseous structures are well aligned. 1 minute 12 seconds of fluoroscopy time is utilized. Electronically Signed by Mark Espinoza MD 05/01/2020 07:38 P
[2020-05-01] MEDS: TAMSULOSIN 0.4 MG CAP PO SCH (15:14)
--- NOTE | 2020-05-01 17:28 | IPNPDOC ---
Text Note Date of Service The patient was seen on 05/01/20. NOTE SUBJECTIVE: -No complaints today. Pain well controlled. Ambulated with PT. -Is having some urinary retention requiring straight cath, is asking for flomax PHYSICAL EXAMINATION: CONSTITUTIONAL: No acute distress, resting comfortably, AAO x 3 EYES: PERRLA, EOM intact HENT, MOUTH: Normocephalic, atraumatic, moist mucous membranes, NECK: SUPPLE, no JVD, no lymphadenopathy, no carotid bruit CV: Regular rate and rhythm, S1S2 normal, no murmurs/rubs/gallops RESPIRATORY: Clear to auscultation bilaterally, no rales/rhonchi/wheezes GI: normoactive sounds, soft, nontender, nondistended, no rebound or guarding, no organomegaly MUSCULOSKELETAL: ROM not tested left hip, mild pain with palpation of left hip. No extremity edema NEUROLOGIC: Cranial Nerves II-XII are intact, no focal deficits PSYCHIATRIC: Mood and affect are normal LABORATORY DATA: WBC 7.7 hgb 10.4 K 3.4 Cr 0.99 ASSESSMENT: 75 y/o M with PMH of gout, GERD, hiatal hernia, HLD admitted for left nondisplaced intertrochanteric fracture s/p surgery, doing well. PLAN: Acute nondisplaced left intertrochanteric fracture s/p surgery. -Pain management per surgery team -PT/OT -Orthopedic surgery onboard, appreciate recs -On xarelto Gout -C/w home meds HLD. -C/w statin GERD -Hx of hiatal hernia -continue home PPI 7. DVT Px. -TEDs, SCDs -on xarelto DISPOSITION: Admitted under medicine service with orthopedic surgery consulted. VS,Fishbone, I+O VS, Fishbone, I+O Laboratory Tests 05/01/20 05:59 Vital Signs Date Time Temp Pulse Resp B/P (MAP) Pulse Ox O2 Delivery O2 Flow Rate FiO2 05/01/20 16:53 17 05/01/20 14:00 98.2 82 120/61 (80) 98 Room Air I&O- Last 24 Hours up to 6 AM 05/01/20 05:59 Intake Total 1800 ml Output Total 75 ml Balance 1725 ml FRANKY WOODRUFF MD May 01, 2020 17:28
[2020-05-01] MEDS ORDERED: RIVAROXABAN 10 MG TAB (XARELTO) PO SCH (18:00)
[2020-05-02 06:00] VITALS: BP 110/62
[2020-05-02] MEDS: PERCOCET 5MG/325MG TAB PO PRN ×3 (06:51→22:30)
[2020-05-02] MEDS ORDERED: PERC5TAB12 PO (07:21)
[2020-05-02] MEDS ORDERED: XARE10TA PO (07:21)
[2020-05-02] MEDS: MOM 30ML SUSPENSION UDC PO SCH (09:00)
[2020-05-02] MEDS: MIRALAX *UNIT DOSE* 17GM PACKET PO SCH (09:00)
[2020-05-02 10:00] VITALS: BP 107/58
[2020-05-02 10:01] LABS: HEMATOCRIT 29.7 % (42.0-52.0); MEAN CORPUSCULAR HEMOGLOBIN 32.2 pg (27.0-33.0); MEAN CORPUSCULAR HGB CONC 33.7 g/dl (32.0-36.5); MEAN CORPUSCULAR VOLUME 95.5 fl (80.0-96.0); PLATELET COUNT, AUTOMATED 184 10^3/uL (150-450); RED BLOOD COUNT 3.11 10^6/uL (4.30-6.10); WHITE BLOOD COUNT 8.7 10^3/uL (4.0-10.0)
[2020-05-02] MEDS: TAMSULOSIN 0.4 MG CAP PO SCH (10:04)
[2020-05-02] MEDS: PANTOPRAZOLE 40MG VIAL (C9113 PER 1) IV SCH (10:04)
[2020-05-02 10:25] LABS: BLOOD UREA NITROGEN 6 MG/DL (7-18); CALCIUM LEVEL 8.2 MG/DL (8.8-10.2); CARBON DIOXIDE LEVEL 26 MEQ/L (21-32); CHLORIDE LEVEL 103 MEQ/L (98-107); CREATININE FOR GFR 0.84 MG/DL (0.70-1.30); GLOMERULAR FILTRATION RATE > 60.0 (>42); GLUCOSE, FASTING 130 MG/DL (70-100); POTASSIUM SERUM 3.7 MEQ/L (3.5-5.1); SODIUM LEVEL 135 MEQ/L (136-145)
[2020-05-02 14:00] VITALS: BP 90/45
--- NOTE | 2020-05-02 15:36 | IPNPDOC ---
Text Note Date of Service The patient was seen on 05/02/20. NOTE SUBJECTIVE: -No complaints. Pain well controlled. -urinary retention persists PHYSICAL EXAMINATION: CONSTITUTIONAL: No acute distress, resting comfortably, AAO x 3 EYES: PERRLA, EOM intact HENT, MOUTH: Normocephalic, atraumatic, moist mucous membranes, NECK: SUPPLE, no JVD, no lymphadenopathy, no carotid bruit CV: Regular rate and rhythm, S1S2 normal, no murmurs/rubs/gallops RESPIRATORY: Clear to auscultation bilaterally, no rales/rhonchi/wheezes GI: normoactive sounds, soft, nontender, nondistended, no rebound or guarding, no organomegaly MUSCULOSKELETAL: FROM in upper and lowe extremities. No extremity edema NEUROLOGIC: Cranial Nerves II-XII are intact, no focal deficits PSYCHIATRIC: Mood and affect are normal LABORATORY DATA: reviewed, stable ASSESSMENT: 75 y/o M with PMH of gout, GERD, hiatal hernia, HLD admitted for left nondisplaced intertrochanteric fracture s/p surgery, doing well. PLAN: Acute nondisplaced left intertrochanteric fracture s/p surgery. -Pain management per surgery team -PT/OT -Orthopedic surgery onboard, appreciate recs -On xarelto Urinary retention: -Spoke with Dr. Moran who recommended placing a sarmiento catheter and to discharge him with the sarmiento with referral to urology to be seen in clinic within 1 week of discharge. he also recommended continuing the flomax Gout -C/w home meds HLD. -C/w statin GERD -Hx of hiatal hernia -continue home PPI 7. DVT Px. -TEDs, SCDs -on xarelto DISPOSITION: Admitted under medicine service with orthopedic surgery consulted. VS,Fishbone, I+O VS, Fishbone, I+O Vital Signs Date Time Temp Pulse Resp B/P (MAP) Pulse Ox O2 Delivery O2 Flow Rate FiO2 05/02/20 06:51 18 Room Air 05/02/20 06:00 99.0 81 110/62 (78) 95 I&O- Last 24 Hours up to 6 AM 05/02/20 06:00 Intake Total 700 ml Output Total 3400 ml Balance -2700 ml FRANKY WOODRUFF MD May 02, 2020 09:20
[2020-05-02 18:00] VITALS: BP 110/60
[2020-05-02] MEDS: RIVAROXABAN 10 MG TAB (XARELTO) PO SCH (18:21)
[2020-05-02 22:00] VITALS: BP 122/61
[2020-05-03 06:00] VITALS: BP 116/83
[2020-05-03] MEDS: PERCOCET 5MG/325MG TAB PO PRN ×3 (06:11→21:27)
[2020-05-03] MEDS: MIRALAX *UNIT DOSE* 17GM PACKET PO SCH (09:45)
[2020-05-03] MEDS: TAMSULOSIN 0.4 MG CAP PO SCH (09:45)
[2020-05-03] MEDS: MOM 30ML SUSPENSION UDC PO SCH (09:45)
[2020-05-03] MEDS: PANTOPRAZOLE 40MG VIAL (C9113 PER 1) IV SCH (09:45)
--- NOTE | 2020-05-03 13:41 | IPNPDOC ---
Text Note Date of Service The patient was seen on 05/03/20. NOTE SUBJECTIVE: -No complaints. Pain well controlled. -urinary retention persists, placing sarmiento PHYSICAL EXAMINATION: CONSTITUTIONAL: No acute distress, resting comfortably, AAO x 3 EYES: PERRLA, EOM intact HENT, MOUTH: Normocephalic, atraumatic, moist mucous membranes, NECK: SUPPLE, no JVD, no lymphadenopathy, no carotid bruit CV: Regular rate and rhythm, S1S2 normal, no murmurs/rubs/gallops RESPIRATORY: Clear to auscultation bilaterally, no rales/rhonchi/wheezes GI: normoactive sounds, soft, nontender, nondistended, no rebound or guarding, no organomegaly MUSCULOSKELETAL: FROM in upper and lower extremities. No extremity edema NEUROLOGIC: Cranial Nerves II-XII are intact, no focal deficits PSYCHIATRIC: Mood and affect are normal LABORATORY DATA: reviewed, stable ASSESSMENT: 75 y/o M with PMH of gout, GERD, hiatal hernia, HLD admitted for left nondisplaced intertrochanteric fracture s/p surgery, doing well with ongoing PT PLAN: Acute nondisplaced left intertrochanteric fracture s/p surgery. -Pain management per surgery team -PT/OT -Orthopedic surgery onboard, appreciate recs -On xarelto Urinary retention: -Spoke with Dr. Moran who recommended placing a sarmiento catheter and to discharge him with the sarmiento with referral to urology to be seen in clinic within 1 week of discharge. he also recommended continuing the flomax. Placing sarmiento this AM Gout -C/w home meds HLD. -C/w statin GERD -Hx of hiatal hernia -continue home PPI 7. DVT Px. -TEDs, SCDs -on xarelto DISPOSITION: Admitted under medicine service with orthopedic surgery consulted. With ongoing pt, not yet cleared. VS,Fishbone, I+O VS, Fishbone, I+O Vital Signs Date Time Temp Pulse Resp B/P (MAP) Pulse Ox O2 Delivery O2 Flow Rate FiO2 05/03/20 13:18 15 Room Air 05/03/20 06:00 98.6 86 116/83 (94) 97 I&O- Last 24 Hours up to 6 AM 05/03/20 05:59 Intake Total 2010 ml Output Total 1575 ml Balance 435 ml FRANKY WOODRUFF MD May 03, 2020 13:41
[2020-05-03 14:00] VITALS: BP 122/69
[2020-05-03] MEDS: RIVAROXABAN 10 MG TAB (XARELTO) PO SCH (17:23)
[2020-05-03 22:00] VITALS: BP 114/61
[2020-05-04] MEDS: PERCOCET 5MG/325MG TAB PO PRN ×2 (05:03→14:00)
[2020-05-04] MEDS ORDERED: XARE10TA PO (05:49)
[2020-05-04 06:00] VITALS: BP 117/80
[2020-05-04] MEDS: MIRALAX *UNIT DOSE* 17GM PACKET PO SCH (09:00)
[2020-05-04] MEDS: MOM 30ML SUSPENSION UDC PO SCH ×2 (09:00→09:23)
[2020-05-04] MEDS: PANTOPRAZOLE 40MG VIAL (C9113 PER 1) IV SCH (09:22)
[2020-05-04] MEDS: TAMSULOSIN 0.4 MG CAP PO SCH (09:23)
[2020-05-04 14:00] VITALS: BP 111/67
--- NOTE | 2020-05-04 15:03 | IPNPDOC ---
Text Note Date of Service The patient was seen on 05/04/20. NOTE SUBJECTIVE: -No complaints. Pain well controlled. -Spoke with his yesterday evening who suggested saw palmetto which we do not carry (checked with pharmacy) PHYSICAL EXAMINATION: CONSTITUTIONAL: No acute distress, resting comfortably, AAO x 3 EYES: PERRLA, EOM intact HENT, MOUTH: Normocephalic, atraumatic, moist mucous membranes NECK: no JVD CV: Regular rate and rhythm, S1S2 normal, no murmurs/rubs/gallops RESPIRATORY: Clear to auscultation bilaterally, no rales/rhonchi/wheezes GI: normoactive sounds, soft, nontender, nondistended, no rebound or guarding, no organomegaly MUSCULOSKELETAL: FROM in upper and lower extremities. No extremity edema NEUROLOGIC: Cranial Nerves II-XII are intact, no focal deficits PSYCHIATRIC: Mood and affect are normal LABORATORY DATA: reviewed, no new labs today, will check AM labs tomorrow ASSESSMENT: 75 y/o M with PMH of gout, GERD, hiatal hernia, HLD admitted for left nondisplaced intertrochanteric fracture s/p surgery, doing well with ongoing PT with course c/b urinary retention s/p sarmiento placement after multiple episodes of straight cath with some traumatic hematuria. PLAN: Acute nondisplaced left intertrochanteric fracture s/p surgery. -Pain management per surgery team -PT/OT -Orthopedic surgery onboard, appreciate recs -On xarelto Urinary retention: -Spoke with Dr. Moran who recommended placing a sarmiento catheter and to discharge him with the sarmiento with referral to urology to be seen in clinic within 1 week of discharge. he also recommended continuing the flomax. -Spoke with who suggested saw palmetto which we do not carry (checked with pharmacy) Gout -C/w home meds HLD. -C/w statin GERD -Hx of hiatal hernia -continue home PPI 7. DVT Px. -TEDs, SCDs -on xarelto DISPOSITION: Admitted under medicine service with orthopedic surgery consulted. With ongoing pt. Likely discharge home tomorrow. VS,Fishbone, I+O VS, Fishbone, I+O Vital Signs Date Time Temp Pulse Resp B/P (MAP) Pulse Ox O2 Delivery O2 Flow Rate FiO2 05/04/20 14:30 16 7/10/20 14:00 98.8 80 111/67 (38) 94 Room Air I&O- Last 24 Hours up to 6 AM 05/04/20 06:00 Intake Total 1500 ml Output Total 2950 ml Balance -1450 ml FRANKY WOODRUFF MD May 04, 2020 15:03
[2020-05-04] MEDS: RIVAROXABAN 10 MG TAB (XARELTO) PO SCH (17:44)
[2020-05-04 22:00] VITALS: BP 104/62
[2020-05-05] MEDS: PERCOCET 5MG/325MG TAB PO PRN (00:32)
[2020-05-05 06:00] VITALS: BP 119/72
[2020-05-05 06:42] LABS: HEMATOCRIT 27.8 % (42.0-52.0); HEMOGLOBIN 9.1 g/dl (13.5-17.5); MEAN CORPUSCULAR HEMOGLOBIN 31.6 pg (27.0-33.0); MEAN CORPUSCULAR HGB CONC 32.7 g/dl (32.0-36.5); MEAN CORPUSCULAR VOLUME 96.5 fl (80.0-96.0); PLATELET COUNT, AUTOMATED 236 10^3/uL (150-450); RED BLOOD COUNT 2.88 10^6/uL (4.30-6.10); WHITE BLOOD COUNT 6.6 10^3/uL (4.0-10.0)
[2020-05-05 07:09] LABS: BLOOD UREA NITROGEN 7 MG/DL (7-18); CALCIUM LEVEL 8.3 MG/DL (8.8-10.2); CARBON DIOXIDE LEVEL 28 MEQ/L (21-32); CHLORIDE LEVEL 103 MEQ/L (98-107); CREATININE FOR GFR 0.69 MG/DL (0.70-1.30); GLOMERULAR FILTRATION RATE > 60.0 (>42); GLUCOSE, FASTING 92 MG/DL (70-100); POTASSIUM SERUM 3.9 MEQ/L (3.5-5.1); SODIUM LEVEL 138 MEQ/L (136-145)
[2020-05-05] MEDS: PANTOPRAZOLE 40MG VIAL (C9113 PER 1) IV SCH (08:01)
[2020-05-05] MEDS: MIRALAX *UNIT DOSE* 17GM PACKET PO SCH (08:01)
[2020-05-05] MEDS: TAMSULOSIN 0.4 MG CAP PO SCH (08:01)
[2020-05-05] MEDS: MOM 30ML SUSPENSION UDC PO SCH (08:01)
--- NOTE | 2020-05-05 13:20 | DS.PDOC ---
Discharge Summary General Date of Admission Apr 30, 2020 at 16:02 Date of Discharge 05/05/2020 Attending Physician: FRANKY WOODRUFF MD Discharge Summary PROCEDURES PERFORMED DURING STAY: Intramedullary rodding of L femur ADMITTING DIAGNOSES: 1. L hip fracture DISCHARGE DIAGNOSES: Left nondisplaced left intertrochanteric fracture Postop urinary retention Gout Hiatal hernia GERD HLD hx of tobacco use COMPLICATIONS/CHIEF COMPLAINT: Hip Fx. HISTORY OF PRESENT ILLNESS: 75 y/o M with PMH of GERD, gout, HLD, tobacco use who presented to [facility] ER after falling on his left hip earlier on the day of presentation. Patient states he was walking his dog earlier that day, when his dog stopped abruptly during a run. He continued to propel forward and his left hip hit the concrete. The rest of his body landed on the lawn. The patient felt immediate severe pain, 10/10 pain, sharp in character, constant. His helped him get to his feet. He was helped to his entryway to his house, his gave him crutches to use. He then had some light breakfast but the pain persisted. He then went to the Urgent Care to get XR. There was a suspicion for femur fracture and he was then sent to the ER for further evaluation. HOSPITAL COURSE: In ER, left hip fracture was confirmed. Orthopedic surgery was consulted and confirmed nondisplaced left intertrochanteric fracture. VS showed some hypertension, tachycardia 2/2 to pain. He was admitted under medicine service with orthopedic consult for left hip fracture requiring further surgical intervention. He had intramedullary rodding of the L femur on 04/30/2020 and did well after with pain well controlled and good ambulation for which he will require some use of a walker at home until he recovers. His course was c/b persistent urinary retention for which he was started on flomax without any effect. He required straight catheterization and on my discussion with Dr. Moran (urology), he suggested placement of a sarmiento catheter and discharge home with a sarmiento with close follow up with urology in the outpatient setting to be seen within 1 week of discharge. He also recommended continuing flomax. DISCHARGE MEDICATIONS: Please see below. ALLERGIES: Please see below. PHYSICAL EXAMINATION ON DISCHARGE: VITAL SIGNS: Please see below. GENERAL: No acute distress, resting comfortably, AAO x 3 EYES: PERRLA, EOM intact HENT, MOUTH: Normocephalic, atraumatic, moist mucous membranes, NECK: SUPPLE, no JVD, no lymphadenopathy, no carotid bruit CV: Regular rate and rhythm, S1S2 normal, no murmurs/rubs/gallops RESPIRATORY: Clear to auscultation bilaterally, no rales/rhonchi/wheezes GI: normoactive sounds, soft, nontender, nondistended, no rebound or guarding, no organomegaly MUSCULOSKELETAL: FROM in upper and lower extremities. No extremity edema NEUROLOGIC: Cranial Nerves II-XII are intact, no focal deficits PSYCHIATRIC: Mood and affect are normal LABORATORY DATA: Please see below. IMAGING: Left hip XR: nondisplaced left intertrochanteric fracture . Left femur XR: AP and cross-table lateral views of the left femur show a previously described proximal femoral fracture. There are no additional fractur es. There is no hip joint dislocation. Left hip XR postop: : Previously described femoral fracture has been internally fixed with intramedullary windy placement. The alignment is near anatomical. The re are no additional fractures. CXR: There is no acute cardiopulmonary disease. PROGNOSIS: Good ACTIVITY: As tolerated DIET: Regular DISCHARGE PLAN: Ortho f/u and urology referral. Home with sarmiento to be assessed by urology within 1 week of discharge. DISPOSITION: Home DISCHARGE INSTRUCTIONS: 1. Ortho f/u and urology referral. Home with sarmiento to be assessed by urology within 1 week of discharge. ITEMS TO FOLLOWUP ON ON OUTPATIENT: 1. L hip fracture s/p recent surgery 2. Urinary retention DISCHARGE CONDITION: Stable TIME SPENT ON DISCHARGE: 41 minutes. Vital Signs/I&Os Vital Signs Date Time Temp Pulse Resp B/P (MAP) Pulse Ox O2 Delivery O2 Flow Rate FiO2 05/03/20 06:41 18 Room Air 05/03/20 06:00 98.6 86 116/83 (94) 97 I&O- Last 24 Hours up to 6 AM 05/03/20 05:59 Intake Total 2010 ml Output Total 1575 ml Balance 435 ml Laboratory Data Labs 24H Laboratory Tests 2 05/02/20 09:37: Nucleated Red Blood Cells % (auto) 0.0, Anion Gap 6L, Glomerular Filtration Rate > 60.0, Calcium Level 8.2L CBC/BMP Laboratory Tests 05/02/20 09:37 Microbiology Microbiology 04/30/20 Respiratory Virus Panel (PCR) ([facility]) - Final, Complete Discharge Medications Scheduled Allopurinol (Zyloprim) 300 Mg Tab, 300 MG PO DAILY, (Reported) Atorvastatin Calcium (Atorvastatin Calcium) 40 Mg Tablet, 40 MG PO DAILY, (Re ported) Cartilage/Collagen/Bor/Hyalur (Move Free Ultra Tablet) 1 Each Tablet, 2 EACH PO DAILY, (Reported) Esomeprazole Magnesium (Nexium) 40 Mg Cap, 40 MG PO DAILY, (Reported) Rivaroxaban (Xarelto) 10 Mg Tablet, 10 MG PO DAILY Saw [place] Fruit/Zinc [place]oli (Saw [place] 450 mg Capsule) 1 Each Capsule, 1 EACH PO DAILY, (Reported) Scheduled PRN Oxycodone HCl/Acetaminophen (Percocet 5-325 mg Tablet) 1 Each Tablet, 1 TAB PO Q4H PRN for PAIN Allergies Coded Allergies: aspirin (Verified Allergy, Intermediate, swelling and hives, 03/26/20) FRANKY WOODRUFF MD May 03, 2020 09:21
--- NOTE | 2020-05-07 16:16 | RO ---
DATE OF PROCEDURE: 04/30/2020 PREOPERATIVE DIAGNOSIS: Nondisplaced left intertrochanteric femur fracture. POSTOPERATIVE DIAGNOSIS: Nondisplaced left intertrochanteric femur fracture. PROCEDURE: Closed reduction, internal fixation left femur with a cephalomedullary nail. SURGEON: Dr. Magnus Bañuelos FORENSIC DNA ANALYST: ANESTHESIA: Spinal. IV FLUIDS: Lactated Ringer's. ESTIMATED BLOOD LOSS: 75 mL IMPLANTS: Synthes intermediate length TFN, 11 mm diameter, 125 degrees neck angle. 90 mm helical blade and a 44 mm distal interlocking screw. CLOSURE: [place]. DESCRIPTION OF PROCEDURE: Patient identified in the preoperative holding area. The left leg was marked. He was admitted to the hospitalist service and medically optimized. The risks and benefits of closed versus open reduction with internal fixation of left femur were discussed and written informed consent was obtained. The patient was brought to the operating room, placed supine on a well-padded operating room (OR) table. Spinal anesthesia was first induced on his hospital bed, then he was transferred to the fracture table. The left leg was secured to the traction boot, and the well leg was secured to the central beam of the OR table in a scissored position. He received appropriate IV antibiotics within 1 hour of incision. Time-out was then performed per hospital protocol. I applied gentle traction with some internal rotation and adduction of the left leg and then preliminary x-rays with the large C-arm were obtained, AP, oblique and lateral views, showing a near anatomic reduction. The left leg was then prepped and draped in a normal sterile fashion with Chloraprep and the fracture shower drape placed. Time-out was again performed. A longitudinal incision was made with a #10 blade just proximal to the tip of the greater trochanter. Dissection down to the tensor fascia joe with Metzenbaum scissors. Curved Li scissors were used to open the deep fascia. Threaded guidewire was placed at the tip of the greater trochanter and advanced with a mallet to the level of the lesser trochanter, confirmed to be appropriate position on AP and lateral views. Opening reamer was then placed over the guidewire. A ball-tip guidewire was now placed and a 12.5 mm cannulated reamer was placed down the shaft. Next, an 11 x 235 mm TFN was placed over the guidewire on the air cargo ground operations supervisor. The nail was malleted to the appropriate depth. The targeting arm was then used, and a small incision made with a 10 blade at the proximal lateral thigh. The trocars were attached to the targeting arm and then a threaded guidewire advanced on power to a center-center position on AP, lateral and oblique views. A 90 mm helical blade was found to be most appropriate. Triple reamer was used in a cannulated fashion and then a 90 mm helical blade malleted over the guidewire to the full depth. Excellent position of the screw on AP, lateral, and oblique views. The nail was locked proximally and then the trocars removed. Through the targeting arm static slot, the separate distal locking screw trocars were placed, stab incision made with a #10 blade, and then I drilled bicortically for a distal locking screw. I then placed a 44 mm distal locking screw with excellent bite. Final images with all instrumentation removed. AP, lateral, oblique views of the mid femur, fracture site and hip joint showed near anatomic reduction with excellent position of hardware. All counts correct times two at this point. All incisions were extensively irrigated, and the tensor fascia was closed with a #1 Vicryl suture in [id number] fashion. Iliotibial (IT) band closed with #1 Vicryl. I then performed a #2-0 subcuticular closure and [place] on the skin. Sterile dressings were applied. The patient was carefully taken down from the fracture table, transferred to hospital bed in stable condition, breathing spontaneously. He has 2+ dorsalis pedis (DP) pulse in the post-anesthesia care unit (PACU). Complications: None. DISPOSITION: Patient is weightbearing as tolerated with a walker for 1 month. He can then attempt to transition to a cane. Vitamin D anywhere from 2-5000 units by mouth daily for the next 3 months. He will need Xarelto for deep vein thrombosis (DVT) prophylaxis for 4 weeks. Follow up in 2 weeks for staple removal and then a month after that.
== END 2020-05-05 10:05 | disposition home health service (06) | DRG 482 ==
LOC: EDBD 13:42 → M ED 13:42 → M ED INP 16:02 → ENRESERV 16:56 → M MSPAV 21:13
PROVIDERS: ADMIT Internal Medicine; ATTEND Internal Medicine
PROC: 0QS706Z Reposition Left Upper Femur with Intramedullary Internal Fixation Device, Open Approach (ICD-10-PCS; principal; 2020-04-30 17:34)
DX: S72.145A Nondisplaced intertrochanteric fracture of left femur, initial encounter for closed fracture (principal); W18.30XA Fall on same level, unspecified, initial encounter; Y92.9 Unspecified place or not applicable; K21.9 Gastro-esophageal reflux disease without esophagitis; M10.9 Gout, unspecified; F17.200 Nicotine dependence, unspecified, uncomplicated; K44.9 Diaphragmatic hernia without obstruction or gangrene; Z87.891 Personal history of nicotine dependence; F10.10 Alcohol abuse, uncomplicated; I10 Essential (primary) hypertension; R33.9 Retention of urine, unspecified

== ENCOUNTER → 2020-04-30 | Outpatient (CLI) | payer MEDICARE ==
[~2020-04-30] MED LIST changes: -NS 1,000 ML IV ONE; +PERC5TAB12 PO; +XARE10TA PO
--- NOTE | 2020-04-30 15:23 | REP ---
REASON: Pain after trauma. There is an intertrochanteric femoral neck fracture. Electronically Signed by Nathaniel Delgado DO 04/30/2020 03:44 P
== END ==
LOC: M WUC 12:26
PROVIDERS: ATTEND Physician Assistant
DX: S72.142A Displaced intertrochanteric fracture of left femur, initial encounter for closed fracture (principal); X58.XXXA Exposure to other specified factors, initial encounter; Y92.9 Unspecified place or not applicable

== ENCOUNTER → 2021-01-31 | Outpatient (REF) | payer MEDICARE ==
[~2021-01-31] MED LIST changes: +BONE STRENGTH PO; +CIPR250T3 PO; +FLOM0.4C39 PO; +IRON27TA2 PO; +NITR-67 PO; +PERC5TAB12 PO; +XARE10TA PO
[2021-01-31 17:50] LABS: APPEARANCE, URINE HAZY (CLEAR); BACTERIA, URINE AUTO 2+ (NEGATIVE); BILIRUBIN, URINE AUTO NEGATIVE (NEGATIVE); BLOOD, URINE BLOOD 1+ (NEGATIVE); COLOR, URINE YELLOW (YELLOW); GLUCOSE, URINE (UA) AUTO NEGATIVE (NEGATIVE); KETONE, URINE AUTO NEGATIVE (NEGATIVE); LEUKOCYTE ESTERASE, URINE AUTO 3+ (NEGATIVE); MUCUS, URINE SMALL (NEGATIVE); NITRITE, URINE AUTO POSITIVE (NEGATIVE); PROTEIN, URINE AUTO 1+ mg/dL (NEGATIVE); RBC, URINE AUTO 1 /HPF (0-3); SPECIFIC GRAVITY URINE AUTO 1.012 (1.002-1.035); SQUAMOUS EPITHELIAL CELL UR AU 0 /HPF (0-6); UROBILINOGEN, URINE AUTO 0.2 mg/dL (0.0-2.0); WBC, URINE AUTO 101 /HPF (0-3)
== END ==
LOC: M SMT 17:13
PROVIDERS: ATTEND Nurse Practitioner Family
DX: Z01.818 Encounter for other preprocedural examination (principal); R33.9 Retention of urine, unspecified

== ENCOUNTER → 2021-02-01 | Outpatient (REF) | payer MEDICARE ==
[~2021-02-01] MED LIST changes: -BONE STRENGTH PO; -CIPR250T3 PO; -IRON27TA2 PO; -NITR-67 PO
[2021-02-01 13:16] LABS: APPEARANCE, URINE CLOUDY (CLEAR); BACTERIA, URINE AUTO 1+ (NEGATIVE); BILIRUBIN, URINE AUTO NEGATIVE (NEGATIVE); BLOOD, URINE BLOOD NEGATIVE (NEGATIVE); COLOR, URINE YELLOW (YELLOW); GLUCOSE, URINE (UA) AUTO NEGATIVE (NEGATIVE); KETONE, URINE AUTO NEGATIVE (NEGATIVE); LEUKOCYTE ESTERASE, URINE AUTO 3+ (NEGATIVE); MUCUS, URINE SMALL (NEGATIVE); NITRITE, URINE AUTO POSITIVE (NEGATIVE); PROTEIN, URINE AUTO 1+ mg/dL (NEGATIVE); RBC, URINE AUTO 3 /HPF (0-3); SQUAMOUS EPITHELIAL CELL UR AU 0 /HPF (0-6); UROBILINOGEN, URINE AUTO 0.2 mg/dL (0.0-2.0); WBC, URINE AUTO 68 /HPF (0-3)
[2021-02-01 13:20] LABS: HEMATOCRIT 39.1 % (42.0-52.0); HEMOGLOBIN 13.3 g/dl (13.5-17.5); MEAN CORPUSCULAR HEMOGLOBIN 31.1 pg (27.0-33.0); MEAN CORPUSCULAR VOLUME 91.4 fl (80.0-96.0); PLATELET COUNT, AUTOMATED 257 10^3/uL (150-450); RED BLOOD COUNT 4.28 10^6/uL (4.30-6.10); WHITE BLOOD COUNT 5.9 10^3/uL (4.0-10.0)
[2021-02-01 13:31] LABS: INR 0.99; PROTHROMBIN TIME 13.3 SECONDS (12.5-14.3)
[2021-02-01 13:32] LABS: PARTIAL THROMBOPLASTIN TIME 25.1 SECONDS (24.2-38.5)
[2021-02-01 13:43] LABS: BLOOD UREA NITROGEN 11 MG/DL (7-18); CALCIUM LEVEL 9.3 MG/DL (8.8-10.2); CARBON DIOXIDE LEVEL 28 MEQ/L (21-32); CHLORIDE LEVEL 104 MEQ/L (98-107); CREATININE FOR GFR 0.94 MG/DL (0.70-1.30); GLOMERULAR FILTRATION RATE > 60.0 (>42); GLUCOSE, FASTING 103 MG/DL (70-100); POTASSIUM SERUM 4.4 MEQ/L (3.5-5.1); SODIUM LEVEL 139 MEQ/L (136-145)
== END ==
LOC: M SFHCPLAZ 10:44
PROVIDERS: ATTEND Family Medicine
DX: Z01.818 Encounter for other preprocedural examination (principal); N40.1 Benign prostatic hyperplasia with lower urinary tract symptoms; I71.4 Abdominal aortic aneurysm, without rupture; R10.13 Epigastric pain

== ENCOUNTER → 2021-02-03 | Outpatient (CLI) | payer MEDICARE ==
[~2021-02-03] MED LIST changes: +BONE STRENGTH PO; +CIPR250T3 PO; +IRON27TA2 PO; +NITR-67 PO
== END ==
LOC: M LABSMTC 08:55
PROVIDERS: ATTEND Anesthesiology
DX: Z01.812 Encounter for preprocedural laboratory examination (principal); Z20.822 Contact with and (suspected) exposure to COVID-19

== ENCOUNTER → 2021-02-04 | Outpatient (CLI) | payer MEDICARE ==
--- NOTE | 2021-02-04 11:26 | REPPI ---
INDICATION: PRE OP. COMPARISON: 04/30/2020 portable TECHNIQUE: PA and lateral views FINDINGS: The superior mediastinal structures are midline. The cardiac silhouette is unremarkable in size, shape, and position. The diaphragmatic surfaces of the lungs are regular, and the costophrenic angles are clear. The pulmonary blackwell are clear. There is mild basilar fibrotic change status quo. The imaged osseous structures are intact. IMPRESSION: There is no acute cardiopulmonary disease. <Electronically signed by Nathaniel Delgado > 02/04/21 [id number]
== END ==
LOC: M PLAIMG 10:01
PROVIDERS: ATTEND Family Medicine
DX: Z01.818 Encounter for other preprocedural examination (principal); J84.10 Pulmonary fibrosis, unspecified

== ENCOUNTER 2021-02-08 12:10 | Day surgery (SDC) | payer MEDICARE ==
[~2021-02-08] VITALS: Ht 175.3 cm; Wt 73.0 kg
[~2021-02-08 12:10] MED LIST changes: +LIDOCAINE 1% MDV 20ML VIAL SQ PRN; +LR 1,000 ML IV ONE; +ceFAZolin SOD 2 GM in IV 1 EA IV ONE
[2021-02-08] MEDS ORDERED: MIDAZOLAM INJ 2MG/2ML VIAL (J2250 PER 1MG) As Ordered ONE ×2 (13:45→13:48)
[2021-02-08] MEDS ORDERED: fentaNYL 100 MCG/2 ML INJECTION (J3010) As Ordered ONE (13:45)
[2021-02-08] MEDS ORDERED: LIDOCAINE 2% 100MG/5ML SDV (FOR ANES.) As Ordered ONE (13:45)
[2021-02-08] MEDS ORDERED: dexameTHASONE 4 MG/ML 1ML VIAL (J1100 PER 1MG) As Ordered ONE (13:45)
[2021-02-08] MEDS ORDERED: propofoL 200 MG/20 ML VIAL As Ordered ONE (13:45)
[2021-02-08] MEDS ORDERED: ONDANSETRON 4MG/2ML VIAL As Ordered ONE (14:47)
[2021-02-08] MEDS ORDERED: METOCLOPRAMIDE INJ 10MG/2ML VIAL (J2765 PER 1) As Ordered ONE (14:47)
[2021-02-08] MEDS ORDERED: FUROSEMIDE 100MG/10ML VIAL (J1940) As Ordered ONE (14:56)
[2021-02-08] MEDS ORDERED: oxyCODONE 5MG TAB PO PRN (15:35)
[2021-02-08] MEDS ORDERED: LR 1,000 ML IV SCH (15:35)
[2021-02-08] MEDS ORDERED: fentaNYL 100 MCG/2 ML INJECTION (J3010) IV PRN (15:35)
[2021-02-08] MEDS ORDERED: ACETAMINOPHEN TAB 650MG DOSE (2X325MG) PO PRN (15:35)
[2021-02-08] MEDS ORDERED: ONDANSETRON 4MG/2ML VIAL IV PRN (15:35)
[2021-02-08 16:25] VITALS: BP 140/80
--- NOTE | 2021-02-08 18:26 | RO ---
OPERATIVE NOTE DATE OF OPERATION: 02/08/2021 PREOPERATIVE DIAGNOSIS: Benign prostatic hyperplasia with urinary retention. POSTOPERATIVE DIAGNOSIS: Benign prostatic hyperplasia with urinary retention. PROCEDURE: Cystoscopy, button transurethral electrovaporization of the prostate. SURGEON: Melvin Bowman MD TERMITE TREATER HELPER: None. ANESTHESIA: General. DESCRIPTION OF PROCEDURE/OPERATIVE INDICATIONS: This is a 75-year-old male with urinary retention secondary to benign prostatic hyperplasia. He is brought to the operating room today for the above-mentioned procedure. DESCRIPTION OF PROCEDURE: The patient was brought to the operating room and general anesthesia was induced. Prophylactic antibiotics were infused. He was placed in the dorsal lithotomy position and prepped and draped in the usual sterile fashion. At this point a resectoscope was inserted in the urethral meatus and advanced into the bladder using a visual obturator. Of note, the patient had bilobar benign prostatic hyperplasia. I made note of the location of both ureteral orifices. They were not close to the bladder neck. At this point I began vaporizing hyperplastic tissue circumferentially at the bladder neck and then on both lobes of the disease. I kept doing this until there was a clear channel established. Throughout the procedure I made sure not to vaporize close to the ureteral orifices or distal to the verumontanum. Once satisfied there was a clear channel established, hemostasis was obtained using the coagulation current. Once there was good hemostasis, this marked conclusion of the procedure. The resectoscope was then removed and the 18 [place] Freitas catheter was inserted into the bladder. The balloon was filled with 15 mL of sterile water. The catheter was connected to gravity drainage. The patient was then taken out of the dorsal lithotomy position, awakened from anesthesia and transported to the recovery room in stable condition. ESTIMATED BLOOD LOSS: 25 mL. COMPLICATIONS: None. SPECIMENS: None. PLAN: The patient will follow up in Urology Clinic in approximately one week for catheter removal and voiding trial. LANDON
== END 2021-02-08 16:30 | disposition home or self-care (01) ==
LOC: M SDC 12:10
PROVIDERS: ATTEND Urology
DX: N40.1 Benign prostatic hyperplasia with lower urinary tract symptoms (principal); M10.9 Gout, unspecified; E78.5 Hyperlipidemia, unspecified; K57.92 Diverticulitis of intestine, part unspecified, without perforation or abscess without bleeding; K21.9 Gastro-esophageal reflux disease without esophagitis; D64.9 Anemia, unspecified; Z87.891 Personal history of nicotine dependence; Z88.8 Allergy status to other drugs, medicaments and biological substances; Z79.899 Other long term (current) drug therapy
CPT/HCPCS: 52601; J0690; J1100; J1940; J2250; J2405; J2765; J3010

== ENCOUNTER 2021-02-21 19:55 | Inpatient (IN) | payer MEDICARE ==
[~2021-02-21] VITALS: Ht 175.3 cm; Wt 74.7 kg
[~2021-02-21 19:55] MED LIST changes: -LIDOCAINE 1% MDV 20ML VIAL SQ PRN; -LR 1,000 ML IV ONE; -ceFAZolin SOD 2 GM in IV 1 EA IV ONE
--- NOTE | 2021-02-21 20:38 | REPVR ---
PROCEDURE INFORMATION: Exam: XR Right Ankle Exam date and time: 02/21/2021 8:32 PM Age: 75 years old Clinical indication: Pain; Ankle; Right; Additional info: Injury TECHNIQUE: Imaging protocol: XR Right ankle. Views: 3 or more views. COMPARISON: No relevant prior studies available. FINDINGS: Bones/joints: Trimalleolar fracture. Widening of the ankle mortise in tilting of the talus with medial angulation. Plantar calcaneal spur. Soft tissues: Soft tissue swelling at the ankle. IMPRESSION: 1. Trimalleolar fracture. 2. Widening of the ankle mortise in tilting of the talus with medial angulation. 3. Soft tissue swelling at the ankle. Electronically signed by: Sudarshan Snider On 02/21/2021 20:38:38 PM
--- NOTE | 2021-02-21 20:52 | REPVR ---
PROCEDURE INFORMATION: Exam: XR Right Tibia and Fibula Exam date and time: 02/21/2021 8:49 PM Age: 75 years old Clinical indication: Pain; Ankle; Right; Additional info: R/O proximal fibular FX TECHNIQUE: Imaging protocol: XR Right tibia and fibula. Views: 2 views. COMPARISON: CR Femur 04/30/2020 3:31 PM FINDINGS: Bones/joints: Trimalleolar fracture demonstrated in the ankle. Please refer to accompanying ankle x-ray report. No proximal fracture demonstrated in the tibia or fibula. Soft tissues: Normal. IMPRESSION: 1. Trimalleolar fracture demonstrated in the ankle. Please refer to accompanying ankle x-ray report. 2. No proximal fracture demonstrated in the tibia or fibula. Electronically signed by: Sudarshan Snider On 02/21/2021 20:52:04 PM
[2021-02-21] MEDS ORDERED: fentaNYL 100 MCG/2 ML INJECTION (J3010) IV ONE ×2 (22:25→23:05)
[2021-02-21] MEDS ORDERED: NS 1,000 ML IV ONE (23:25)
[2021-02-21 23:45] LABS: RSV AMPLIFICATION NEGATIVE (NEGATIVE)
[2021-02-21] MEDS ORDERED: fentaNYL 100 MCG/2 ML INJECTION (J3010) IV PRN ×2 (23:45→23:50)
--- NOTE | 2021-02-21 23:54 | HPEPDOC ---
[facility] Medical History & Physical Date of Admission Feb 21, 2021 Date of Service: Feb 21, 2021 Attending Physician: MADHU DE SOUZA MD History and Physical CHIEF COMPLAINT: [75 year old male with a cc of right ankle pain after a fall] HISTORY OF PRESENT ILLNESS: [This is a 75 year old male with a pmh of hld, gerd, bph, gout, CLL followed by [facility] who presents to the ED on 02/21 after suffering a mechanical fall from a dip in the road while walking his dog. Patient states that he feels like his whole body went one way and his ankle went the other. Patient states his only medical complaint at the moment is pain in his right ankle. Patient denies striking his head, paresthesias, syncope, chest pain, sob. Patient found to have trimalleolar fx on imaging of right ankle in the ED.] PAST MEDICAL HISTORY: 1. [See HPI PAST SURGICAL HISTORY: 1. [B/L cataract removal]. 2. [Achilles repair]. 3. [TURP]. SOCIAL HISTORY: Marital status: []. Resides in: [Home with ] Tobacco use:[Denies] ETOH: [2-3 beers a night] Illicit drug use: [denies] FAMILY HISTORY: Reviewed - none pertinent ALLERGIES: Please see below. REVIEW OF SYSTEMS: CONSTITUTIONAL: [Denies fever, chills]. HEENT: [Denies uri sx]. CARDIOVASCULAR: [Denies chest pain, palpitations]. RESPIRATORY: [Denies sob, wheezing]. GASTROINTESTINAL: [Denies n/v/d/c, abd pain]. GENITOURINARY: [Denies dysuria]. SKIN: [Denies rash]. MUSCULOSKELETAL: [See HPI]. NEUROLOGICAL: [See HPI]. PSYCHIATRIC: [Denies anxiety]. ENDOCRINE: [Denies hx of dm]. HEMATOLOGIC/LYMPHATIC: [Denies easy bruising]. HOME MEDICATIONS: Please see below. PHYSICAL EXAMINATION: VITAL SIGNS: Please see below GENERAL APPEARANCE: [This is a 75 year old male who is laying in bed in mild discomfort due to pain]. HEENT: [No mass or lesion. EOMI. No scleral icterus or conjunctival erythema. Nares patent. Oral mucosa moist without erythema.]. CARDIOVASCULAR: [Regular rate, rhythm. No murmurs, rubs or gallops]. LUNGS: [Good air flow auscultated. No wheezing, rales, rhonchi.]. ABDOMEN: [Soft, non-tender]. MUSCULOSKELETAL: [Right ankle is in a cast at the time of my exam. The toes are pink and without clubbing or cyanosis. No acute joint deformity.]. EXTREMITIES: [No peripheral edema noted. Pulses intact]. NEUROLOGICAL: [Sensation intact. Speech clear. A+Ox3. No focal deficits]. PSYCHIATRIC: [Mood and affect appear appropriate]. LABORATORY DATA: See below. IMAGING: [Ankle x-ray: FINDINGS: Bones/joints: Trimalleolar fracture. Widening of the ankle mortise in tilting of the talus with medial angulation. Plantar calcaneal spur. Soft tissues: Soft tissue swelling at the ankle. IMPRESSION: 1. Trimalleolar fracture. 2. Widening of the ankle mortise in tilting of the talus with medial angulation. 3. Soft tissue swelling at the ankle. Tib/fib x-ray: FINDINGS: Bones/joints: Trimalleolar fracture demonstrated in the ankle. Please refer to accompanying ankle x-ray report. No proximal fracture demonstrated in the tibia or fibula. Soft tissues: Normal. IMPRESSION: 1. Trimalleolar fracture demonstrated in the ankle. Please refer to accompanying ankle x-ray report. 2. No proximal fracture demonstrated in the tibia or fibula. ] MICROBIOLOGY: Please see below. ASSESSMENT: [This is a 75 y/o male with a pmh of hld, gerd, bph, gout, CLL followed by [facility] who presents to the ED on 02/21 after suffering a mechanical fall which resulted in a right ankle trimalleolar fracture. Patient has no medical complaints other than pain in his right ankle.]. . PLAN: 1. [Trimalleolar fx - Dr. Knowles, orthopedics, saw the patient in the ed and reduced the fracture. He will be following and plans to take pt to the or tomorrow. - According to the Revised Cardiac Risk Index, this patient is at Class I risk, and has a 3.9% chance of major cardiac event within 30 days post-op. - Pre-op labwork, ekg, cxr ordered for the morning - NPO diet - Will give 1L of NS overnight - Morphine 2mg q4h for moderate pain, 3mg q4h for severe pain - Admit under obs to med surg 2. ETOH abuse - pt states he has not had a drink in several days, should not need ciwa - pt should follow up outpatient with pcp for counseling on cessation 3. HLD - continue statin postop 4. GERD - continue ppi postop 5. BPH - s/p turp. stable. 6. Gout - continue allopurinol postop 7. CLL - patient follows at [facility] every 6 months. has never undergone treatment for his cll - monitor 8. DVT prophylaxis - Teds to unaffected leg as pt will undergo surgery tomorrow]. Vital Signs Vital Signs Date Time Temp Pulse Resp B/P (MAP) Pulse Ox O2 Delivery O2 Flow Rate FiO2 02/21/21 23:26 80 16 137/75 (95) 97 Room Air 02/21/21 19:56 96.9 Laboratory Data Labs 24H Laboratory Tests 2 02/21/21 22:56: Coronavirus (COVID-19)(PCR) NEGATIVE, Influenza Type A (RT-PCR) NEGATIVE, Influenza Type B (RT-PCR) NEGATIVE, Respiratory Syncytial Virus (PCR) NEGATIVE Home Medications Scheduled Allopurinol (Zyloprim) 300 Mg Tab, 300 MG PO DAILY Atorvastatin Calcium (Atorvastatin Calcium) 40 Mg Tablet, 40 MG PO DAILY Cartilage/Collagen/Bor/Hyalur (Move Free Ultra Tablet) 1 Each Tablet, 1 TAB PO DAILY Esomeprazole Magnesium (Esomeprazole Magnesium) 20 Mg Capsule.dr, 40 MG PO DAILY Ferrous Sulfate (Ferrous Sulfate) 325 Mg Tablet, 325 MG PO DAILY Allergies Coded Allergies: aspirin (Verified Allergy, Intermediate, swelling and hives, 02/08/21) A-FIB/CHADSVASC A-FIB History Current/History of A-Fib/PAF?: No SONIDO BAILEY Feb 21, 2021 23:54
[2021-02-22 00:51] VITALS: BP 132/83
--- NOTE | 2021-02-22 00:56 | REPVR ---
PROCEDURE INFORMATION: Exam: CT Right Lower Extremity Without Contrast, Ankle Exam date and time: 02/21/2021 11:33 PM Age: 75 years old Clinical indication: Injury or trauma; Fall; Fracture, traumatic; Closed fracture; Ankle; Right; Not specified; Additional info: 3d recon 2mm thin slices, R ankle TECHNIQUE: Imaging protocol: CT of the Right lower extremity without contrast was performed. Exam focused on the ankle. Radiation optimization: All CT scans at this facility use at least one of these dose optimization techniques: automated exposure control; mA and/or kV adjustment per patient size (includes targeted exams where dose is matched to clinical indication); or iterative reconstruction. COMPARISON: CR Ankle, complete RIGHT 02/21/2021 8:18 PM FINDINGS: There has been reduction of previously seen ankle fracture subluxation. A cast has been placed. Again noted is a slightly comminuted, slightly displaced slightly overriding oblique fracture through the distal fibular shaft extending into the apex of the lateral ankle gutter. Secondary to slight fracture displacement and overriding, a small bony fragment extends into the lateral aspect of the tibiotalar joint space. Overriding of fibular fragments also slightly depresses the lateral aspect of the talus. There is a horizontal fracture through the medial malleolus. There is a slightly comminuted minimally displaced posterior malleolar fracture. Fractures involve the medial and lateral ankle gutters, the tibiotalar joint and distal tibiofibular joint. The talar dome is intact. No other fracture at the visualized hindfoot is seen. Mild bony degenerative changes are noted. There is a moderately large plantar calcaneal heel spur. There is circumferential soft tissue swelling around the ankle extending above the level of imaging. No soft tissue gas is seen. IMPRESSION: Acute intra-articular distal tibial and fibular fractures, with associated soft tissue swelling as discussed above in detail. Electronically signed by: Jackson Hickey On 02/22/2021 00:55:40 AM
[2021-02-22] MEDS ORDERED: MORPHINE 2 MG/ML 1ML VIAL (J2270) IV PRN (01:05)
[2021-02-22] MEDS ORDERED: ESOM0.1C PO (01:07)
[2021-02-22] MEDS ORDERED: FERR325T18 PO (01:07)
[2021-02-22] MEDS ORDERED: CART1TAB2 PO (01:07)
[2021-02-22 02:00] VITALS: BP 132/83
[2021-02-22] MEDS ORDERED: LORazepam 2 MG TAB PO PRN (05:50)
[2021-02-22 06:29] VITALS: BP 136/87
[2021-02-22 06:55] LABS: HEMATOCRIT 38.9 % (42.0-52.0); HEMOGLOBIN 12.9 g/dl (13.5-17.5); MEAN CORPUSCULAR HEMOGLOBIN 30.6 pg (27.0-33.0); MEAN CORPUSCULAR HGB CONC 33.2 g/dl (32.0-36.5); MEAN CORPUSCULAR VOLUME 92.2 fl (80.0-96.0); PLATELET COUNT, AUTOMATED 269 10^3/uL (150-450); RED BLOOD COUNT 4.22 10^6/uL (4.30-6.10)
[2021-02-22] MEDS: MORPHINE 4 MG/ML 1ML VIAL/SYRINGE (J2270) IV PRN ×3 (07:02→15:06)
[2021-02-22 07:23] LABS: BLOOD UREA NITROGEN 7 MG/DL (7-18); CALCIUM LEVEL 8.5 MG/DL (8.8-10.2); CARBON DIOXIDE LEVEL 25 MEQ/L (21-32); CHLORIDE LEVEL 107 MEQ/L (98-107); CREATININE FOR GFR 0.71 MG/DL (0.70-1.30); GLOMERULAR FILTRATION RATE > 60.0 (>42); GLUCOSE, FASTING 85 MG/DL (70-100); POTASSIUM SERUM 3.7 MEQ/L (3.5-5.1); SODIUM LEVEL 138 MEQ/L (136-145)
--- NOTE | 2021-02-22 07:52 | ER ---
ER CONSULTATION DATE: 02/21/2021 TIME OF CONSULT: 10 p.m. CONSULTING SERVICE: Orthopedic surgery. CONSULTING PHYSICIAN: Samuel Knowles MD HISTORY OF PRESENT ILLNESS: This is a 75-year-old male, community ambulator, relatively active male with closed right ankle trimalleolar fracture dislocation of the right ankle. The patient was walking his dog and tripped in a pothole sustaining the aforementioned injury. Orthopedic surgery was consulted for the aforementioned injury who then responded bedside within an hour. The patient's right ankle was closed reduced, placed in well padded L&U splint. He is indicated for open reduction and internal fixation which will happen tomorrow, January,. MEDICAL HISTORY: Includes: 1. Chronic lymphocytic leukocytosis. 2. Gout. 3. Mitral valve prolapse. SURGICAL HISTORY: 1. Left hip cephalomedullary nail. 2. Right Achilles repair 20 years prior. 3. TURP procedure. SOCIAL HISTORY: He is a 6 beer a day user, non-IV drug user, nonsmoker, for the last 13 years smoking free. ALLERGIES: ASPIRIN RASH. CURRRENT MEDICATIONS: 1. Allopurinol. 2. Nexium. 3. Atorvastatin. REVIEW OF SYSTEMS: 14-point review of systems was negative unless otherwise described in HPI above. PHYSICAL EXAMINATION: GENERAL: Alert and oriented to person, time and place. CARDIAC: Regular rate and rhythm. CHEST: Clear to auscultation bilaterally. Equal rise with chest bilaterally. EXTREMITIES: Right lower extremity the patient had obvious deformity about the right ankle with what appeared to be lateral displacement of the talus. The patient's initial presentation had tented skin about the medial malleolus. He was otherwise neurovascularly intact. He had 2+ dorsalis pedis and posterior tibial arterial pulse, 5/5 motor strength to the EHL, FHL, tibialis anterior, gastrocnemius and peroneal musculature. He had sensation to light touch to the deep and superficial peroneal, sural, saphenous and tibial nerve distributions. Brisk capillary refill to the digits. Closed injury, no breaks in the skin. IMAGING DATA: Trimalleolar ankle fracture dislocation. The patient had a small posterior malleolar fracture, Armstrong B ankle fracture of the lateral malleolus and medial malleolar fracture with lateral displacement of the talus. CT scan pending. IMPRESSION: 75-year-old male with unstable right closed trimalleolar ankle fracture. PLAN: Given the patient's unstable ankle fracture he is indicated for right ankle open reduction and internal fixation. Given the fact that he did have a previous right Achilles repair with posterior skin incision likely perform percutaneous fixation of the posterior malleolus and plate and screws for the lateral distal fibula and screw fixation for the medial malleolus. This will be an open reduction and internal fixation of right ankle. He will be optimized by the internal medicine team tonight. His pain will be controlled. He was closed reduced and placed in well padded L&U splint. He will undergo surgery tomorrow afternoon, time and space available likely at 4 p.m. COVID testing pending.
--- NOTE | 2021-02-22 08:03 | REP ---
INDICATION: ankle reduction. COMPARISON: Comparison radiographs 21 February 2021.. TECHNIQUE: Six fluoroscopic views right ankle. 39.15 seconds of fluoroscopy time is reported. FINDINGS: A sequence of 6 last image hold fluoroscopically obtained spot radiographs of the ankle document closed reduction and cast immobilization right ankle. IMPRESSION: Procedural imaging. <Electronically signed by Miller Holloway > 02/22/21 0751
--- NOTE | 2021-02-22 08:44 | REP ---
INDICATION: pre op. COMPARISON: Comparison chest x-ray 30 April 2020. TECHNIQUE: Portable upright AP chest radiograph. FINDINGS: The lungs are well inflated and free of infiltrate. Pleural angles are sharp. Heart size is normal. Pulmonary vasculature is not increased. The thoracic aorta is somewhat tortuous as before. IMPRESSION: No active disease. <Electronically signed by Miller Holloway > 02/22/21 0076
[2021-02-22] MEDS: THIAMINE 100 MG TAB PO SCH (09:00)
[2021-02-22] MEDS: MULTIVITAMINS/MINERALS THERAP 1 TAB PO SCH (09:00)
[2021-02-22] MEDS: FOLIC ACID 1 MG TAB PO SCH (09:00)
--- NOTE | 2021-02-22 09:20 | IPNPDOC ---
Date Seen The patient was seen on 02/22/21. Progress Note SUBJECTIVE: c/o 3/10 pain scale right ankle better w morphine. "I feel a little dopey." decreased appetite. "despite this beautiful breakfast, I couldn't eat much." no sob/f/chills. no other issues. denies cp,pressure,tightness. OBJECTIVE PHYSICAL EXAMINATION: VITAL SIGNS: Please see below. GENERAL: pleasant aaox 3 no distress lying supine 30degree hob elevation. right ankle elevated on 1 pillow HEENT: no jvd moist mm no cervical lad no thyromegaly CARDIOVASCULAR: S1S2 RRR no s3 RESPIRATORY: CTAB ABDOMINAL: soft nt nd +bs x 4quadrants EXTREMITIES:right ankle bandaged elevated on 1 pillow. no cyanosis. able to wiggle toes. skin warm to touch dry and pink in color LABORATORY DATA, IMAGING STUDIES, MICROBIOLOGY: Please see below. ASSESSMENT AND PLAN: 75 y/o M w CLL, GERD, chol, bph, s/p mechanical fall at home admitted for right ankle trimalleolar fx Medical Clearance -medically optimized to proceed to surgery Right ankle trimalleolar fx -right orif. npo after breakfast. ortho mgt. pt/ot postop GERD -ppi Hyperlipidemia -chronic BPH -resumed home meds VS, I&O, 24H, Fishbone Vital Signs/I&O Vital Signs Date Time Temp Pulse Resp B/P (MAP) Pulse Ox O2 Delivery O2 Flow Rate FiO2 02/22/21 07:02 18 Room Air 02/22/21 06:29 97.5 103 136/87 (103) 98 I&O- Last 24 Hours up to 6 AM 02/22/21 06:00 Intake Total 700 ml Output Total 1020 ml Balance -320 ml Laboratory Data 24H LABS Laboratory Tests 2 02/21/21 22:56: Coronavirus (COVID-19)(PCR) NEGATIVE, Influenza Type A (RT-PCR) NEGATIVE, Influenza Type B (RT-PCR) NEGATIVE, Respiratory Syncytial Virus (PCR) NEGATIVE 02/22/21 06:44: Nucleated Red Blood Cells % (auto) 0.0, Anion Gap 6L, Glomerular Filtration Rate > 60.0, Calcium Level 8.5L CBC/BMP Laboratory Tests 02/22/21 06:44 EVAN DEAL MD Feb 22, 2021 09:20
--- NOTE | 2021-02-22 09:26 | ECGEPIP ---
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
[2021-02-22 14:00] VITALS: BP_SYST 140; BP_SYST 158; BP_DIAS 83; BP_DIAS 87
[2021-02-22] MEDS ORDERED: propofoL 200 MG/20 ML VIAL As Ordered ONE ×3 (17:20→22:00)
[2021-02-22] MEDS ORDERED: LIDOCAINE 2% 100MG/5ML SDV (FOR ANES.) As Ordered ONE (17:20)
[2021-02-22] MEDS ORDERED: ROCURONIUM BROMIDE 50 MG/5 ML VIAL As Ordered ONE ×2 (17:20→18:46)
[2021-02-22] MEDS ORDERED: dexameTHASONE 4 MG/ML 1ML VIAL (J1100 PER 1MG) As Ordered ONE (17:21)
[2021-02-22] MEDS ORDERED: ONDANSETRON 4MG/2ML VIAL As Ordered ONE (17:21)
[2021-02-22] MEDS ORDERED: fentaNYL 100 MCG/2 ML INJECTION (J3010) As Ordered ONE ×3 (17:21→21:02)
[2021-02-22] MEDS ORDERED: MIDAZOLAM INJ 2MG/2ML VIAL (J2250 PER 1MG) As Ordered ONE (17:42)
[2021-02-22] MEDS ORDERED: ceFAZolin 2 GM/D5W 50 ML IV BAG (J0690 PER 500MG) As Ordered ONE ×2 (18:00→22:06)
[2021-02-22] MEDS ORDERED: BUPIVACAINE LIPOSOME/PF 1.3% 20ML VIAL (13.3MG/ML)(EXPAREL)(C9290 PER1MG) As Ordered ONE (18:00)
[2021-02-22] MEDS ORDERED: PHENYLephrine 500MCG 5ML (100MCG/ML) SYRINGE As Ordered ONE ×3 (18:12→19:15)
[2021-02-22] MEDS ORDERED: TRANEXAMIC ACID 100 MG/ML 10ML VIAL As Ordered ONE (20:48)
[2021-02-22] MEDS ORDERED: ACETAMINOPHEN 1000MG 100ML IV BTL (OFIRMEV) (J0131 PER 10MG) As Ordered ONE (21:07)
[2021-02-22] MEDS ORDERED: KETOROLAC 60MG 2ML VIAL As Ordered ONE (21:07)
[2021-02-22] MEDS ORDERED: SUGAMMADEX SODIUM 500 MG/5 ML VIAL (BRIDION) As Ordered ONE (21:21)
[2021-02-22] MEDS ORDERED: PERCOCET 5MG/325MG TAB PO PRN (23:00)
[2021-02-22] MEDS ORDERED: HYDROMORPHONE HCL 0.5 MG/ 0.5 ML SYRINGE (J1170 PER 1) IV PRN (23:00)
[2021-02-22] MEDS ORDERED: LR 1,000 ML IV SCH (23:00)
[2021-02-22] MEDS ORDERED: fentaNYL 100 MCG/2 ML INJECTION (J3010) IV PRN (23:00)
[2021-02-22] MEDS ORDERED: KETOROLAC 30 MG/ML 1ML VIAL IV PRN (23:00)
[2021-02-22] MEDS ORDERED: ONDANSETRON 4MG/2ML VIAL IV PRN (23:00)
[2021-02-22 23:39] VITALS: BP 136/88
[2021-02-22 23:50] VITALS: BP 133/88
[2021-02-23] VITALS (12 sets, daily range): BP systolic 113–134; BP diastolic 64–83
[2021-02-23] MEDS: THIAMINE 100 MG TAB PO SCH ×3 (00:27→21:02)
[2021-02-23] MEDS ORDERED: SLF 3 ML SYR IV PRN (00:40)
[2021-02-23] MEDS: SLF 3 ML SYR IV SCH ×3 (05:14→21:02)
[2021-02-23] MEDS ORDERED: MIRA3350 PO (07:55)
[2021-02-23] MEDS ORDERED: SENO8.6T10 PO (07:55)
[2021-02-23] MEDS ORDERED: PERC5TAB12 PO (07:55)
--- NOTE | 2021-02-23 08:09 | REP ---
INDICATION: FLUORO GUIDANCE COMPARISON: 02/21/2021 TECHNIQUE: Intraoperative fluoroscopic imaging using portable C-arm technique. FINDINGS: Images demonstrate the patient to be status post satisfactory open reduction and fixation for trimalleolar fractures. Total fluoroscopic time 265.2 seconds IMPRESSION: Status post satisfactory open reduction and fixation. <Electronically signed by Ken Gallegos > 02/23/21 0806
[2021-02-23] MEDS: MULTIVITAMINS/MINERALS THERAP 1 TAB PO SCH (08:50)
[2021-02-23] MEDS: FERROUS SULFATE 325MG TAB PO SCH (08:50)
[2021-02-23] MEDS: ATORVASTATIN 20 MG TAB PO SCH (08:50)
[2021-02-23] MEDS: FOLIC ACID 1 MG TAB PO SCH (08:51)
[2021-02-23] MEDS: allopurinoL 300 MG TAB PO SCH (08:51)
[2021-02-23] MEDS: PERCOCET 5MG/325MG TAB PO PRN ×4 (08:52→23:00)
--- NOTE | 2021-02-23 09:53 | RO ---
OPERATIVE NOTE DATE OF OPERATION: 02/22/2021 TIME: 7 p.m. PREOPERATIVE DIAGNOSIS: Right ankle trimalleolar fracture, closed. POSTOPERATIVE DIAGNOSIS: Right ankle trimalleolar fracture, closed. NAME OF OPERATION: Right ankle open reduction and internal fixation. SURGEON: Samuel Knowles MD VETERINARY SURGERY TECHNOLOGIST: None SUPERVISING ATTENDING: Samuel Knowles MD FINDINGS: The patient had an unstable ankle fracture with a displaced distal fibular fracture, a posterior malleolar fracture and a medial malleolar fracture. INDICATIONS: This was a 74-year-old male with a closed right ankle trimalleolar fracture dislocation who presented to the [facility] on the January, after catching his foot in a hole while walking and sustaining a ground level fall. The patient was a community ambulator without assistive devices. The patient is a chronic alcohol user, six beers daily. He had chronic lymphocytic leukocytosis, gout and mitral valve prolapse. He was indicated for a right ankle open reduction and internal fixation for his unstable ankle fracture. ANESTHESIA: GETA. TOURNIQUET TIME: 120 minutes. ESTIMATED BLOOD LOSS: 100 mL. IV FLUIDS: Please see anesthesia report. ANTIBIOTICS: 2 grams of Ancef, dose twice with a four hour interval. IMPLANTS: Synthes. CULTURES: None. SPECIMENS: None. DESCRIPTION OF PROCEDURE: The patient was met in the preoperative holding area where the patient's operative extremity was signed, the patient's consent was confirmed to be correct, and the patient's identity was confirmed to be correct. The patient was then transported to the operating theater where he was placed supine on a regular surgical flat-top bed with radiolucent foot extension. A safety strap secured the patient to the bed. All bony prominences were well padded. The contralateral lower extremity had SCD placed. A timeout was called to confirm the correct patient, correct operative extremity and correct consent. All staff were in agreement. The patient was then draped in the usual sterile fashion. We began the procedure by inflating the tourniquet to 250 mmHg. We obtained fluoroscopic imaging on AP and lateral views that demonstrated fracture location to aid in our incision placement. After obtaining the AP, lateral and mortise view of the ankle, we then proceeded with a posterolateral percutaneous incision in order to place one tong of a Rubin Tong clamp. We then placed a second percutaneous incision on the medial aspect of the distal tibia. This was then tightened in order to reduce our posterior malleolar fracture. This was then followed by placing a thin wire through the posterior malleolar fracture. This would be used for a percutaneous 4.0 mm partially threaded cannulated screw. After confirming on AP and lateral and mortise views that we were satisfied with our thin wire placement, we then placed a partially cannulated screw over the guidewire in order to provide fixation of the posterior malleolus. Once this was completed, we then turned our attention to the lateral malleolus and made a 3-inch longitudinal incision in line with the fibula overlying the fracture site. I then identified the fracture which was then cleaned using a pituitary, joker, scalpel and hemostat. Once the fracture was cleaned, it was then reduced using a lobster claw clamp. This was an anatomic reduction that had perfect cortical reach. I then placed two 2.7 mm lag screws by technique, crossing the fracture from anterior to posterior. Once these were placed, we then removed our lobster clamp and placed a six-hole distal fibular locking plate into position. This was secured using two thin wires. We then secured this to the distal fibula using a cortical screw in order to compress the bone to the surface followed by four additional locking screws. We then turned our attention to the proximal aspect of the plate and we then placed a 3.5 mm cortical screw in the fourth most proximal hole using 4.0 in order to aid in our screw placement. We then placed an additional cortical screw proximally in our third most proximal hole. We then placed a locking screw in the second most proximal hole and a third cortical screw in the most proximal hole. At this point in time, we satisfactorily reduced our distal fibular fracture and provided both absolute stability to the fracture using the lag screws and neutralization using the distal fibular plate and then turned my attention to the medial malleolus. I made a one inch longitudinal incision overlying the medial malleolar fracture. The periosteum was removed from the fracture site. It was cleaned using bulb syringe, irrigation, hemostats, scalpel and a joker. I then reduced this anatomically and used a [id number] bone-reducing clamp in order to provide provisional fixation. At this point in time, we placed two thin wires from the apex to the medial malleolus, crossing the fracture orthogonally. I confirmed with AP and lateral views that we were satisfied with our thin wire placement and then placed two partially threaded 4.0 mm screws overlying the thin wires each 15 mm in length. Once this was achieved, I then turned my attention back to the distal fibula. Given the fracture instability and appreciating partial AITFL or anterior inferior tibiofibular ligament injury, I decided to place syndesmotic fixation through the oblong hole 2 cm proximal to the tibiotalar joint using a [employer]ynthe[employer] syndesmotic device. This was placed using fluoroscopic guidance. This provided syndesmotic fixation and increased rigidity of our construct. At this point in time, I copiously irrigated all of the surgical incisions. I closed the periosteum over the distal fibular plate as well as the medial malleolar fracture using 0 Vicryl. I then closed the dermal layer of all my surgical incisions using 2-0 PDS suture and closed the epidermis of all of my surgical incisions using a running 3-0 nylon suture. We covered the surgical incision using Xeroform, 4x4s, and Webril. The patient was then placed in a well-padded L and U splint. The patient was extubated without complication and transported to the postanesthesia care unit. The patient will be nonweightbearing for likely 8-10 weeks to the right lower extremity. He will follow up in the [facility] orthopedic clinic in two weeks for a postoperative wound check and transition to either an L and U splint or a Cam boot. The patient's care will be transferred to the hospitalist service. We recommend pain control on discharge and 81 mg of aspirin daily.
--- NOTE | 2021-02-23 13:54 | IPN ---
PROGRESS NOTE DATE: 02/23/2021 SUBJECTIVE: Patient complains of no pain this morning despite right ankle open reduction internal fixation (ORIF). He is anxious to go home. He otherwise has no shortness of breath, chest pain, pressure, tightness, lightheadedness, fever, chills, nausea, vomiting or abdominal pain. He has not eaten much and has not had any bowel movement. OBJECTIVE: PHYSICAL EXAMINATION: VITAL SIGNS: Temperature 97, pulse 64, respiratory rate 18, blood pressure 130/79, 97% on room air. GENERAL: Awake, alert, oriented to person, place and time, answering questions appropriately. HEENT: No jugular venous distention (JVD), thyromegaly or cervical lymphadenopathy. Moist mucous membranes. HEART: S1, S2. Regular rate and rhythm. No S3. LUNGS: Clear to auscultation. No wheezing, rales or rhonchi. ABDOMEN: Soft, nontender, nondistended. Positive bowel sounds all four quadrants. No rebound or guarding. EXTREMITIES: Right ankle bandage, elevated on one pillow. No cyanosis. SKIN: Color is warm, dry, well perfused. LABORATORY DATA: 02/22/2021: CBC, metabolic panel have been reviewed. Respiratory panel is negative. Coronavirus is negative. ASSESSMENT AND PLAN: This is a 75-year-old male with history of chronic lymphocytic leukemia (CLL), reflux, hypercholesterolemia, benign prostatic hypertrophy (BPH), had a mechanical fall at home with right trimalleolar fracture status post open reduction internal fixation (ORIF) on 02/22/2021. IMPRESSION: 1. Right ankle trimalleolar fracture. Currently on Percocet as needed for pain, morphine intravenously for breakthrough. Physical therapy (PT), occupational therapy (OT) postoperatively. Management per Dr. Knowles, orthopedic surgery. Patient says that he has all the equipment at home. He lives on a one level home and his will be at home all weekend, but will be working Thursday through Thursday. 2. Chronic lymphocytic leukemia (CLL). No acute issues. 3. Gastroesophageal reflux. He is on proton pump inhibitor (PPI). 4. Hyperlipidemia. Chronic. 5. Benign prostatic hypertrophy (BPH). On home medications. DISPOSITION: Await home physical therapy (PT) home safety evaluation and clearance from orthopedic surgery for discharge home. [facility]
[2021-02-24] VITALS (7 sets, daily range): BP systolic 105–117; BP diastolic 58–66
[2021-02-24] MEDS: SLF 3 ML SYR IV SCH ×3 (05:39→21:42)
[2021-02-24] MEDS: PERCOCET 5MG/325MG TAB PO PRN ×4 (05:40→21:43)
[2021-02-24] MEDS: FOLIC ACID 1 MG TAB PO SCH (08:37)
[2021-02-24] MEDS: THIAMINE 100 MG TAB PO SCH ×2 (08:37→21:43)
[2021-02-24] MEDS: allopurinoL 300 MG TAB PO SCH (08:37)
[2021-02-24] MEDS: MULTIVITAMINS/MINERALS THERAP 1 TAB PO SCH (08:37)
[2021-02-24] MEDS: ATORVASTATIN 20 MG TAB PO SCH (08:38)
[2021-02-24] MEDS: FERROUS SULFATE 325MG TAB PO SCH (08:38)
[2021-02-24] MEDS: MIRALAX *UNIT DOSE* 17GM PACKET PO SCH ×2 (09:00→21:42)
[2021-02-24] MEDS: SENOKOT S TAB PO SCH ×2 (09:00→21:42)
[2021-02-24] MEDS ORDERED: MOM 30ML SUSPENSION UDC PO PRN (12:40)
[2021-02-24] MEDS ORDERED: MOM 30ML SUSPENSION UDC PO ONE (13:00)
--- NOTE | 2021-02-24 16:55 | IPN ---
PROGRESS NOTE DATE: 02/24/2021 SUBJECTIVE: Patient is seen and examined at the bedside. Chart has been reviewed. He complains of discomfort when he tries to bear weight on the right lower extremity status post right ankle fracture open reduction internal fixation (ORIF). Patient has a set of stairs at home and did not do well with physical therapy and could not be discharged yesterday. He describes the pain as achy, 3/10 when ambulating. He is managed with a walker, usually uses a cane at home. Patient has otherwise no other issues overnight. PHYSICAL EXAMINATION: VITAL SIGNS: Temperature 97.5, pulse 71, respiratory rate 20, blood pressure 105/58, 95% on room air. GENERAL: Awake, alert, oriented to person, place and time, answering questions appropriately. LUNGS: Clear to auscultation. No wheezing, rales or rhonchi. HEART: S1, S2. Sinus rhythm. No murmurs, rubs or gallops. ABDOMEN: Soft, nontender, nondistended. Positive bowel sounds all four quadrants. No rebound or guarding. EXTREMITIES: Right foot is elevated on one pillow. Right ankle is bandaged. SKIN: Warm, dry, well perfused, pink in color. Able to move his toes without any difficulty. LABORATORY DATA: Laboratory data, imaging studies have all been reviewed. ASSESSMENT AND PLAN: This is a 75-year-old male with history of chronic lymphocytic leukemia (CLL), reflux, hypercholesterolemia, benign prostatic hypertrophy (BPH), had a mechanical fall at home, presented with a right trimalleolar fracture, went to the operating room on 02/22/2021 status post open reduction internal fixation managed postoperatively by Dr. Knowles, orthopedic surgeon. Patient has an allergy to aspirin. IMPRESSION: 1. Right ankle trimalleolar fracture. 2. History of chronic lymphocytic leukemia (CLL). 3. Reflux disease. 4. Hyperlipidemia. 5. Benign prostatic hypertrophy (BPH). PLAN: Patient is currently on morphine as needed for breakthrough pain, Percocet every 4 hours as needed. Physical therapy (PT), occupational therapy (OT) have been consulted, but not physically cleared by therapy due to instability and persistent pain. Patient will be tried again in the morning for evaluation and may go home in 1-2 days pending further evaluation. He is otherwise resumed on his home medications, appears to be stable on them. Bowel regimen has been provided. Patient says that he has not had a bowel movement, but he does not feel uncomfortable or constipated. He also denies any urine retention, despite use of opioids. MTDD
[2021-02-25] MEDS: PERCOCET 5MG/325MG TAB PO PRN (03:49)
[2021-02-25] MEDS: SLF 3 ML SYR IV SCH (05:31)
[2021-02-25 06:00] VITALS: BP 125/61
[2021-02-25 08:00] VITALS: BP 125/61
[2021-02-25] MEDS: SENOKOT S TAB PO SCH (09:03)
[2021-02-25] MEDS: FOLIC ACID 1 MG TAB PO SCH (09:03)
[2021-02-25] MEDS: MULTIVITAMINS/MINERALS THERAP 1 TAB PO SCH (09:03)
[2021-02-25] MEDS: MIRALAX *UNIT DOSE* 17GM PACKET PO SCH (09:03)
[2021-02-25] MEDS: allopurinoL 300 MG TAB PO SCH (09:03)
[2021-02-25] MEDS: FERROUS SULFATE 325MG TAB PO SCH (09:04)
[2021-02-25] MEDS: ATORVASTATIN 20 MG TAB PO SCH (09:04)
--- NOTE | 2021-02-25 11:15 | IPNPDOC ---
Date Seen The patient was seen on 02/25/21. Progress Note SUBJECTIVE: Patient has not passed physical therapy and is doing poorly going up the stairs. He says his pain is controlled but when he ambulates. The pain increases to 7 out of 10 on a pain scale. Complains of constipation given a bowel regimen OBJECTIVE: PHYSICAL EXAM: . VITALS: SEE BELOW GENERALLY Awake, alert, oriented to person, place and time, answering questions appropriately. No distress LUNGS: Clear to auscultation. No wheezing, rales or rhonchi. Air entry is equal bilaterally. No adventitious breath sounds HEART: S1, S2. Sinus rhythm. No murmurs, rubs or gallops. ABDOMEN: Soft, nontender, nondistended. Positive bowel sounds all four quadrants. No rebound or guarding.. No hepatosplenomegaly EXTREMITIES: Right foot is elevated on one pillow. Right ankle is bandaged. SKIN: Warm, dry, well perfused, pink in color. Able to move his toes without any difficulty. LABORATORY DATA: Laboratory data, imaging studies have all been reviewed. ASSESSMENT AND PLAN: This is a 75-year-old male with history of chronic lymphocytic leukemia (CLL), reflux, hypercholesterolemia, benign prostatic hypertrophy (BPH), had a mechanical fall at home, presented with a right trimalleolar fracture, went to the operating room on 02/22/2021 status post open reduction internal fixation managed postoperatively by Dr. Knowles, orthopedic surgeon. Patient has an allergy to aspirin. IMPRESSION: 1. Right ankle trimalleolar fracture. 2. History of chronic lymphocytic leukemia (CLL). 3. Reflux disease. 4. Hyperlipidemia. 5. Benign prostatic hypertrophy (BPH). 6. Constipation PLAN: Currently medically stable for discharge but still unsteady on his feet and able to go up the stairs which he will need to do at home. Therefore, patient be kept on current medications and continue with present management, but will be changed LCF and of status until he is physically stable enough to be discharged home. Postop management per orthopedic surgery VS, I&O, 24H, Fishbone Vital Signs/I&O Vital Signs Date Time Temp Pulse Resp B/P (MAP) Pulse Ox O2 Delivery O2 Flow Rate FiO2 02/25/21 06:00 98.1 65 18 125/61 (82) 93 Room Air 02/23/21 02:06 2.0 I&O- Last 24 Hours up to 6 AM 02/25/21 06:00 Intake Total 1580 ml Output Total 1900 ml Balance -320 ml EVAN DEAL MD February 25, 2021 11:15
== END 2021-02-25 13:00 | disposition home health service (06) | DRG 493 ==
LOC: M ED 19:55 → M ED INP 19:56 → ENRESERV 23:53 → M MS5PR 02-22 00:45 → OBSVTOIN 02-22 07:37
PROVIDERS: ADMIT Family Medicine; ATTEND General Practice
PROC: 0SSF04Z Reposition Right Ankle Joint with Internal Fixation Device, Open Approach (ICD-10-PCS; principal; 2021-02-22 16:00)
DX: S82.854A Nondisplaced trimalleolar fracture of right lower leg, initial encounter for closed fracture (principal); C91.10 Chronic lymphocytic leukemia of B-cell type not having achieved remission; Z98.41 Cataract extraction status, right eye; Z98.42 Cataract extraction status, left eye; K21.9 Gastro-esophageal reflux disease without esophagitis; N40.0 Benign prostatic hyperplasia without lower urinary tract symptoms; M10.9 Gout, unspecified; F10.10 Alcohol abuse, uncomplicated; Z79.899 Other long term (current) drug therapy; Z88.6 Allergy status to analgesic agent; E78.5 Hyperlipidemia, unspecified; W01.0XXA Fall on same level from slipping, tripping and stumbling without subsequent striking against object, initial encounter; Y92.009 Unspecified place in unspecified non-institutional (private) residence as the place of occurrence of the external cause; K59.00 Constipation, unspecified

== ENCOUNTER → 2021-03-21 | Outpatient (CLI) | payer MEDICARE ==
[~2021-03-21] MED LIST changes: +ESOM0.1C PO; +FERR325T18 PO; +MIRA3350 PO; +SENO8.6T10 PO
--- NOTE | 2021-03-21 12:18 | REP ---
INDICATION: F/U FX. COMPARISON: 02/21/2021 TECHNIQUE: AP, lateral, bilateral oblique views of the right ankle. FINDINGS: Subsequent satisfactory open reduction and fixation for medial and lateral malleolar fractures. IMPRESSION: Status post open reduction and fixation. <Electronically signed by Ken Gallegos > 03/21/21 [id number]
== END ==
LOC: M SOG 11:37
PROVIDERS: ATTEND Orthopaedic Surgery
DX: M84.371D Stress fracture, right ankle, subsequent encounter for fracture with routine healing (principal); Z47.89 Encounter for other orthopedic aftercare

== ENCOUNTER → 2021-04-18 | Outpatient (CLI) | payer MEDICARE ==
--- NOTE | 2021-04-18 16:27 | REP ---
INDICATION: DISPL TRIMALLEOL FX R LOW LEG, SUBS FOR CLOS FX W ROUTN HEAL. COMPARISON: 03/21/2021 TECHNIQUE: Four views FINDINGS: Once again, there has been previous ORIF status quo. Internal fixation plate and fixing screws and pins status quo. No change in alignment. No acute abnormality. IMPRESSION: No significant change <Electronically signed by Nathaniel Delgado > 04/18/21 [id number]
== END ==
LOC: M SOG 15:29
PROVIDERS: ATTEND Orthopaedic Surgery
DX: S82.851D Displaced trimalleolar fracture of right lower leg, subsequent encounter for closed fracture with routine healing (principal); X58.XXXD Exposure to other specified factors, subsequent encounter; Y92.9 Unspecified place or not applicable

== ENCOUNTER 2021-05-24 09:58 | Outpatient (RCR) | payer MEDICARE | END 2021-05-25 | disposition still patient (30) | LOC: M PT 09:58 | PROVIDERS: ATTEND Orthopaedic Surgery | DX: S82.851D Displaced trimalleolar fracture of right lower leg, subsequent encounter for closed fracture with routine healing (principal); Z47.89 Encounter for other orthopedic aftercare; X58.XXXD Exposure to other specified factors, subsequent encounter; Y92.9 Unspecified place or not applicable; Y93.9 Activity, unspecified; Y99.9 Unspecified external cause status ==

== ENCOUNTER 2021-06-24 13:25 | Outpatient (RCR) | payer MEDICARE | END 2021-06-25 | LOC: M PT 13:25 | PROVIDERS: ATTEND Orthopaedic Surgery | DX: S82.851D Displaced trimalleolar fracture of right lower leg, subsequent encounter for closed fracture with routine healing (principal); Z47.89 Encounter for other orthopedic aftercare; X58.XXXD Exposure to other specified factors, subsequent encounter; Y92.9 Unspecified place or not applicable; Y99.9 Unspecified external cause status; Y93.9 Activity, unspecified ==

== ENCOUNTER → 2021-07-05 | Outpatient (CLI) | payer MEDICARE ==
--- NOTE | 2021-07-05 15:01 | REP ---
INDICATION: NICOTINE DEPENDENCE, LUNG CANCER SCREENING. COMPARISON: The most recent comparison CT study is March 09, 2020. The most remote is March 12, 2017. TECHNIQUE: Dose reduction was performed utilizing CARE dose with automated adjustment of the kV and MAS according to patient size; iterative reconstruction, automated exposure control, as well as adaptive dose shielding. Helical scanning is acquired and 3 millimeter axial images are re-formatted at lung windows. FINDINGS: Digital preliminary record tester radiograph is unremarkable. Axial CT images show emphysematous changes in the upper lobes and scattered areas of subpleural mild pulmonary parenchymal fibrosis. These are most pronounced in the right middle lobe, left upper lobe, and right lower lobe. This is unchanged from the comparison study. No pulmonary mass, new infiltrate, or significant pulmonary nodule is seen. No endobronchial abnormality is observed. There are degenerative changes in the thoracic spine. Minimal vascular calcification is present. IMPRESSION: Lung RADS category 1 findings. Repeat screening exam indicated in 1 year. <Electronically signed by Miller Holloway > 07/05/21 [id number]
== END ==
LOC: M RAD 14:24
PROVIDERS: ATTEND Family Medicine
DX: Z12.2 Encounter for screening for malignant neoplasm of respiratory organs (principal); F17.211 Nicotine dependence, cigarettes, in remission; M51.34 Other intervertebral disc degeneration, thoracic region; J84.10 Pulmonary fibrosis, unspecified

== ENCOUNTER → 2021-07-12 | Outpatient (CLI) | payer MEDICARE ==
[2021-07-12 13:22] LABS: ALBUMIN 3.4 GM/DL (3.2-5.2); ALT/SGPT 18 U/L (12-78); BILIRUBIN,TOTAL 0.6 MG/DL (0.2-1.0); BLOOD UREA NITROGEN 9 MG/DL (7-18); CARBON DIOXIDE LEVEL 30 MEQ/L (21-32); CHLORIDE LEVEL 102 MEQ/L (98-107); CHOLESTEROL LEVEL 178 MG/DL (<200); CHOLESTEROL RISK RATIO 1.561 (<5); CREATININE FOR GFR 0.78 MG/DL (0.70-1.30); GLOMERULAR FILTRATION RATE > 60.0 (>42); GLUCOSE, FASTING 83 MG/DL (70-100); HDL CHOLESTEROL 114 MG/DL (>40); LDL CHOLESTEROL 35 MG/DL (<100); NON-HDL-C 64 MG/DL; POTASSIUM SERUM 4.3 MEQ/L (3.5-5.1); SODIUM LEVEL 138 MEQ/L (136-145); TRIGLYCERIDES LEVEL 146 MG/DL (<150); URIC ACID 3.7 MG/DL (3.5-7.2)
== END ==
LOC: M PLALAB 09:48
PROVIDERS: ATTEND Family Medicine
DX: E78.1 Pure hyperglyceridemia (principal); M10.9 Gout, unspecified

== ENCOUNTER 2021-07-24 13:30 | Outpatient (RCR) | payer MEDICARE | END 2021-07-25 | LOC: M PT 13:30 | PROVIDERS: ATTEND Orthopaedic Surgery | DX: S82.851D Displaced trimalleolar fracture of right lower leg, subsequent encounter for closed fracture with routine healing (principal); X58.XXXD Exposure to other specified factors, subsequent encounter; Y92.9 Unspecified place or not applicable; Y93.9 Activity, unspecified; Y99.9 Unspecified external cause status ==

== ENCOUNTER 2021-08-23 12:42 | Outpatient (RCR) | payer MEDICARE | END 2021-08-25 | LOC: M PT 12:42 | PROVIDERS: ATTEND Orthopaedic Surgery | DX: S82.851D Displaced trimalleolar fracture of right lower leg, subsequent encounter for closed fracture with routine healing (principal); X58.XXXD Exposure to other specified factors, subsequent encounter; Y92.9 Unspecified place or not applicable; Y93.9 Activity, unspecified; Y99.9 Unspecified external cause status ==

== ENCOUNTER → 2021-09-03 | Outpatient (CLI) | payer MEDICARE ==
--- NOTE | 2021-09-03 15:56 | REP ---
INDICATION: RT ANKLE FX. COMPARISON: 04/18/2021 TECHNIQUE: Four views FINDINGS: S/p ORIF status quo. No acute abnormality has developed. There is a plantar calcaneal heel spur status quo. IMPRESSION: No change <Electronically signed by Nathaniel Delgado > 09/03/21 [id number]
== END ==
LOC: M SOG 08:07
PROVIDERS: ATTEND Orthopaedic Surgery
DX: S82.851D Displaced trimalleolar fracture of right lower leg, subsequent encounter for closed fracture with routine healing (principal); M77.31 Calcaneal spur, right foot; X58.XXXD Exposure to other specified factors, subsequent encounter; Y92.9 Unspecified place or not applicable; Y99.9 Unspecified external cause status

== ENCOUNTER 2021-09-18 14:15 | Outpatient (RCR) | payer MEDICARE ==
[2021-11-21] MEDS ORDERED: IRON27TA2 PO (11:17)
[2021-11-21] MEDS ORDERED: NOXI1TAB PO (11:17)
[2021-11-21] MEDS ORDERED: IBUP200C25 PO (11:17)
== END 2021-09-24 ==
LOC: M PT 14:15
PROVIDERS: ATTEND Orthopaedic Surgery
DX: S82.851D Displaced trimalleolar fracture of right lower leg, subsequent encounter for closed fracture with routine healing (principal); X58.XXXD Exposure to other specified factors, subsequent encounter; Y92.9 Unspecified place or not applicable; Y93.9 Activity, unspecified; Y99.9 Unspecified external cause status

== ENCOUNTER → 2022-07-11 | Outpatient (CLI) | payer MEDICARE ==
[~2022-07-11] MED LIST changes: +NOXI1TAB PO; +THERTAB52 PO
[2022-07-11 17:15] LABS: CHOLESTEROL LEVEL 183 MG/DL (<200); CHOLESTEROL RISK RATIO 1.605 (<5); HDL CHOLESTEROL 114 MG/DL (>40); NON-HDL-C 69 MG/DL; TRIGLYCERIDES LEVEL 378 MG/DL (<150); URIC ACID 3.9 MG/DL (3.5-7.2)
== END ==
LOC: M PLALAB 14:34
PROVIDERS: ATTEND Physician Assistant
DX: E78.1 Pure hyperglyceridemia (principal); M10.9 Gout, unspecified

== ENCOUNTER → 2022-09-09 | Outpatient (CLI) | payer MEDICARE | LOC: M RAD 13:41 | PROVIDERS: ATTEND Physician Assistant | DX: Z12.2 Encounter for screening for malignant neoplasm of respiratory organs (principal); F17.211 Nicotine dependence, cigarettes, in remission; J43.9 Emphysema, unspecified; J47.9 Bronchiectasis, uncomplicated ==

== ENCOUNTER → 2023-05-29 | Outpatient (CLI) | payer MEDICARE ==
[~2023-05-29] MED LIST changes: +ALLO300T2
== END ==
LOC: M RAD 14:03
PROVIDERS: ATTEND Physician Assistant
DX: R07.81 Pleurodynia (principal)

== ENCOUNTER → 2023-07-31 | Outpatient (CLI) | payer MEDICARE ==
[2023-07-31 14:02] LABS: BASO # 0.1 10^3/uL (0.0-0.2); BASO % 1.3 % (0.0-1.0); EOS # 0.2 10^3/uL (0.0-0.5); EOS % 3.4 % (0.0-3.0); HEMOGLOBIN 12.5 g/dl (13.5-17.5); LYMPH # 1.5 10^3/uL (1.5-5.0); LYMPH % 28.1 % (24.0-44.0); MEAN CORPUSCULAR HEMOGLOBIN 33.3 pg (27.0-33.0); MEAN CORPUSCULAR HGB CONC 34.7 g/dl (32.0-36.5); MONO # 0.4 10^3/uL (0.0-0.8); NEUTROPHILS # 3.2 10^3/uL (1.5-8.5); NEUTROPHILS % 58.8 % (36.0-66.0); PLATELET COUNT, AUTOMATED 298 10^3/uL (150-450); RED BLOOD COUNT 3.75 10^6/uL (4.30-6.10); WHITE BLOOD COUNT 5.4 10^3/uL (4.0-10.0)
[2023-07-31 14:32] LABS: ALBUMIN 3.6 G/DL (3.2-5.2); ALKALINE PHOSPHATASE 137 U/L (46-116); ALT/SGPT 21 U/L (7.0-40); AST/SGOT 41 U/L (<34); BILIRUBIN,TOTAL 0.7 MG/DL (0.3-1.2); BLOOD UREA NITROGEN 8 MG/DL (9-23); CALCIUM LEVEL 9.1 MG/DL (8.3-10.6); CARBON DIOXIDE LEVEL 28 MMOL/L (20-31); CHLORIDE LEVEL 106 MMOL/L (98-107); CHOLESTEROL LEVEL 163 MG/DL (<200); CHOLESTEROL RISK RATIO 1.43 (<5); CREATININE FOR GFR 0.81 MG/DL (0.70-1.30); GLOMERULAR FILTRATION RATE > 60.0 (>42); GLUCOSE, FASTING 74 MG/DL (74-106); HDL CHOLESTEROL 113.4 MG/DL (>40); NON-HDL-C 49.6 MG/DL; POTASSIUM SERUM 4.1 MMOL/L (3.5-5.1); SODIUM LEVEL 140 MMOL/L (136-145); TOTAL PROTEIN 6.8 G/DL (5.7-8.2); TRIGLYCERIDES LEVEL 173 MG/DL (<150)
[2023-07-31 14:34] LABS: URIC ACID 4.4 MG/DL (3.7-9.2)
== END ==
LOC: M PLALAB 11:22
PROVIDERS: ATTEND Physician Assistant
DX: Z00.00 Encounter for general adult medical examination without abnormal findings (principal); E78.1 Pure hyperglyceridemia; F10.99 Alcohol use, unspecified with unspecified alcohol-induced disorder; R10.13 Epigastric pain; M10.9 Gout, unspecified

== ENCOUNTER → 2024-07-18 | Outpatient (CLI) | payer MEDICARE ==
[~2024-07-18] MED LIST changes: -ALLO300T2; +ALLO300T2 PO; -ESOM0.1C PO; +ESOM20CA2 PO
[2024-07-18 14:38] LABS: BASO # 0.1 10^3/uL (0.0-0.2); BASO % 1.2 % (0.0-1.0); EOS # 0.1 10^3/uL (0.0-0.5); HEMATOCRIT 34.3 % (42.0-52.0); HEMOGLOBIN 11.9 g/dl (13.5-17.5); LYMPH # 1.4 10^3/uL (1.5-5.0); LYMPH % 27.6 % (24.0-44.0); MEAN CORPUSCULAR HEMOGLOBIN 34.6 pg (27.0-33.0); MEAN CORPUSCULAR HGB CONC 34.7 g/dl (32.0-36.5); MEAN CORPUSCULAR VOLUME 99.7 fl (80.0-96.0); MONO # 0.5 10^3/uL (0.0-0.8); NEUTROPHILS % 59.8 % (36.0-66.0); PLATELET COUNT, AUTOMATED 244 10^3/uL (150-450); RED BLOOD COUNT 3.44 10^6/uL (4.30-6.10)
[2024-07-18 14:54] LABS: URIC ACID 4.6 MG/DL (3.7-9.2)
[2024-07-18 14:57] LABS: ALBUMIN 3.4 G/DL (3.2-5.2); ALKALINE PHOSPHATASE 145 U/L (46-116); ALT/SGPT 29 U/L (7.0-40); AST/SGOT 66 U/L (<34); BILIRUBIN,TOTAL 0.6 MG/DL (0.3-1.2); BLOOD UREA NITROGEN 10 MG/DL (9-23); CALCIUM LEVEL 8.8 MG/DL (8.3-10.6); CARBON DIOXIDE LEVEL 30 MMOL/L (20-31); CHLORIDE LEVEL 106 MMOL/L (98-107); CHOLESTEROL LEVEL 154 MG/DL (<200); CHOLESTEROL RISK RATIO 2.06 (<5); CREATININE FOR GFR 0.75 MG/DL (0.70-1.30); GLOMERULAR FILTRATION RATE > 60.0 (>42); GLUCOSE, FASTING 71 MG/DL (74-106); HDL CHOLESTEROL 74.5 MG/DL (>40); LDL CHOLESTEROL 21.9 MG/DL (<100); NON-HDL-C 79.5 MG/DL; POTASSIUM SERUM 4.2 MMOL/L (3.5-5.1); SODIUM LEVEL 142 MMOL/L (136-145); TOTAL PROTEIN 6.6 G/DL (5.7-8.2); TRIGLYCERIDES LEVEL 288 MG/DL (<150)
[2024-07-18 14:59] LABS: PSA SCREENING 0.99 NG/ML (< 4.00)
[2024-07-18 15:03] LABS: THYROID STIMULATING HORMONE 1.912 uIU/ML (0.55-4.78)
[2024-07-18 15:04] LABS: TOTAL 25(OH) VITAMIN D 47.2 NG/ML (20.0-100.0)
[2024-07-18 15:05] LABS: FREE T4 0.93 NG/DL (0.89-1.76)
[2024-07-18 15:14] LABS: HEMOGLOBIN A1c 4.9 % (4.0-6.0)
== END ==
LOC: M PLALAB 11:16
PROVIDERS: ATTEND Physician Assistant
DX: Z00.00 Encounter for general adult medical examination without abnormal findings (principal); M10.9 Gout, unspecified; E78.1 Pure hyperglyceridemia; N40.1 Benign prostatic hyperplasia with lower urinary tract symptoms; E55.9 Vitamin D deficiency, unspecified; Z13.1 Encounter for screening for diabetes mellitus; R63.4 Abnormal weight loss; Z12.5 Encounter for screening for malignant neoplasm of prostate
CPT/HCPCS: 36415; 80053; 80061; 82306; 83036; 84439; 84443; 84550; 85025; G0103

== ENCOUNTER → 2024-08-18 | Outpatient (CLI) | payer MEDICARE | LOC: M RAD 10:16 | PROVIDERS: ATTEND Physician Assistant | DX: I71.43 Infrarenal abdominal aortic aneurysm, without rupture (principal) ==

== ENCOUNTER → 2025-05-22 | Outpatient (CLI) | payer MEDICARE ==
[~2025-05-22] MED LIST changes: -FLOM0.4C39 PO; +TAMS-18 PO
[2025-05-22 13:35] LABS: BASO # 0.1 10^3/uL (0.0-0.2); BASO % 1.2 % (0.0-1.0); EOS # 0.1 10^3/uL (0.0-0.5); EOS % 2.2 % (0.0-3.0); LYMPH # 1.8 10^3/uL (1.5-5.0); LYMPH % 31.3 % (24.0-44.0); MONO # 0.6 10^3/uL (0.0-0.8); MONO % 10.8 % (2.0-8.0); NEUTROPHILS # 3.1 10^3/uL (1.5-8.5); NEUTROPHILS % 54.0 % (36.0-66.0); PLATELET COUNT, AUTOMATED 260 10^3/uL (150-450)
[2025-05-22 13:37] LABS: PSA SCREENING 0.79 NG/ML (< 4.00)
[2025-05-22 13:41] LABS: ALT/SGPT 20 U/L (7.0-40); AST/SGOT 47 U/L (<34); CALCIUM LEVEL 8.9 MG/DL (8.3-10.6); CARBON DIOXIDE LEVEL 30 MMOL/L (20-31); CHLORIDE LEVEL 101 MMOL/L (98-107); CHOLESTEROL LEVEL 159 MG/DL (<200); CHOLESTEROL RISK RATIO 1.62 (<5); CREATININE FOR GFR 0.74 MG/DL (0.70-1.30); GLOMERULAR FILTRATION RATE > 90.0 (>42); LDL CHOLESTEROL 15.9 MG/DL (<100); NON-HDL-C 61.1 MG/DL; POTASSIUM SERUM 4.4 MMOL/L (3.5-5.1); SODIUM LEVEL 142 MMOL/L (136-145); TRIGLYCERIDES LEVEL 226 MG/DL (<150)
[2025-05-22 13:55] LABS: ESTIMATED AVERAGE GLUCOSE 100.0 MG/DL (60-110)
== END ==
LOC: M PLALAB 10:49
PROVIDERS: ATTEND Student in an Organized Health Care Education/Training Program
DX: Z00.00 Encounter for general adult medical examination without abnormal findings (principal); Z79.899 Other long term (current) drug therapy; Z12.5 Encounter for screening for malignant neoplasm of prostate
CPT/HCPCS: 36415; 80053; 80061; 83036; 83880; 84443; 85025; G0103

== ENCOUNTER → 2025-07-28 | Outpatient (CLI) | payer MEDICARE | LOC: M CARPUL 09:46 | PROVIDERS: ATTEND Student in an Organized Health Care Education/Training Program | DX: I08.3 Combined rheumatic disorders of mitral, aortic and tricuspid valves (principal) ==